=== PATIENT | male | born 1985 | race Caucasian/White ===

== ENCOUNTER 2016-12-16 02:03 | Emergency (ER) | payer MEDICAID, OTHER ==
[~2016-12-16] VITALS: Ht 177.8 cm; Wt 84.0 kg
[2016-12-16 02:06] VITALS: BP 185/95; PULSE 78; RESP 16; TEMP 97.9; O2SAT 97
[2016-12-16] MEDS ORDERED: LORazepam 1 MG TAB PO ONE (02:30)
--- NOTE | 2016-12-16 02:36 | PD ---
HPI Chief Complaint: Psychiatric Symptoms Time Seen by Provider: 02:21 Travel History International Travel<30 days: No Contact w/Intl Traveler<30days: No Traveled to known affect area: No History of Present Illness HPI 31-year-old male complains of anxiety, depression and substance abuse. Patient admitted to some alcohol and methamphetamine and cocaine this evening. Patient text a message to a friend earlier that appears to be a suicidal goodbye note. Patient denies any suicidal ideation now. Patient also has history of PTSD. Patient states that he was seen by psychiatrist in the past. Patient stated he is not on any medication now. Patient denies any headache. Patient denies any chest pain or shortness of breath. Patient denies abdominal pain. Patient denies any focal weakness or numbness of extremity. PFSH Past Medical History ADD: Yes ADHD: Yes Anxiety: Yes Depression: Yes Social History Alcohol Use: Yes (OFTEN) Tobacco Use: Yes (2 PPD) Substance Use: Yes (COCAINE, SNORT AND SMOKING, MARIJUAN) Allergies-Medications (Allergen,Severity, Reaction): Coded Allergies: bee venom protein (honey bee) (Verified Allergy, Severe, Anaphylaxis, 11/22) peanut (Verified Allergy, Severe, Anaphylaxis, 12/16/16) Reported Meds & Prescriptions Reported Meds & Active Scripts Active No Active Prescriptions or Reported Medications Review of Systems General / Constitutional: No: Fever Eyes: No: Visual changes HENT: No: Headaches Cardiovascular: No: Chest Pain or Discomfort Respiratory: No: Shortness of Breath Gastrointestinal: No: Abdominal Pain Genitourinary: No: Dysuria Musculoskeletal: No: Pain Skin: No Rash Neurologic: No: Weakness Psychiatric: Positive: Anxiety, Depression, Suicidal Ideations Endocrine: No: Polydipsia Hematologic/Lymphatic: No: Easy Bruising Physical Exam Narrative GENERAL: Well-nourished, well-developed patient. SKIN: Focused skin assessment warm/dry. HEAD: Normocephalic. EYES: No scleral icterus. No injection or drainage. NECK: Supple, trachea midline. No JVD or lymphadenopathy. CARDIOVASCULAR: Regular rate and rhythm without murmurs, gallops, or rubs. RESPIRATORY: Breath sounds equal bilaterally. No accessory muscle use. GASTROINTESTINAL: Abdomen soft, non-tender, nondistended. MUSCULOSKELETAL: No cyanosis, or edema. BACK: Nontender without obvious deformity. No CVA tenderness. Data Data Last Documented VS Vital Signs Date Time Temp Pulse Resp B/P (MAP) Pulse Ox O2 Delivery O2 Flow Rate FiO2 12/16/16 02:06 97.9 78 16 185/95 (125) 97 Room Air Orders Orders Complete Blood Count With Diff (12/16/16 02:24) Comprehensive Metabolic Panel (12/16/16 02:24) Psych Screen (12/16/16 02:24) Drug Screen, Random Urine (12/16/16 02:24) Alcohol (Ethanol) (12/16/16 02:24) Lorazepam (Ativan) (12/16/16 02:30) Nicotine 21 Mg Patch.24 Hr (Habitrol 21 (12/16/16 02:45) Labs Laboratory Tests Test 12/16/16 02:28 12/16/16 03:12 White Blood Count 10.8 TH/MM3 Red Blood Count 4.68 MIL/MM3 Hemoglobin 15.6 GM/DL Hematocrit 44.3 % Mean Corpuscular Volume 94.7 FL Mean Corpuscular Hemoglobin 33.3 PG Mean Corpuscular Hemoglobin Concent 35.2 % Red Cell Distribution Width 13.5 % Platelet Count 239 TH/MM3 Mean Platelet Volume 8.4 FL Neutrophils (%) (Auto) 58.7 % Lymphocytes (%) (Auto) 32.7 % Monocytes (%) (Auto) 6.8 % Eosinophils (%) (Auto) 0.9 % Basophils (%) (Auto) 0.9 % Neutrophils # (Auto) 6.4 TH/MM3 Lymphocytes # (Auto) 3.5 TH/MM3 Monocytes # (Auto) 0.7 TH/MM3 Eosinophils # (Auto) 0.1 TH/MM3 Basophils # (Auto) 0.1 TH/MM3 CBC Comment DIFF FINAL Differential Comment Blood Urea Nitrogen 9 MG/DL Creatinine 1.12 MG/DL Random Glucose 82 MG/DL Total Protein 7.5 GM/DL Albumin 4.1 GM/DL Calcium Level 8.9 MG/DL Alkaline Phosphatase 70 U/L Aspartate Amino Transf (AST/SGOT) 21 U/L Alanine Aminotransferase (ALT/SGPT) 31 U/L Total Bilirubin 0.5 MG/DL Sodium Level 141 MEQ/L Potassium Level 3.7 MEQ/L Chloride Level 107 MEQ/L Carbon Dioxide Level 24.4 MEQ/L Anion Gap 10 MEQ/L Estimat Glomerular Filtration Rate 76 ML/MIN Ethyl Alcohol Level LESS THAN 3 MG/DL Urine Opiates Screen NEG Urine Barbiturates Screen NEG Urine Amphetamines Screen NEG Urine Benzodiazepines Screen NEG Urine Cocaine Screen POS Urine Cannabinoids Screen POS MDM Medical Decision Making Medical Screen Exam Complete: Yes Emergency Medical Condition: Yes Interpretation(s) 4:13 AM. CBC within normal limit. CMP within normal limit. Drug screen positive for cocaine and cannabis. Differential Diagnosis Differential diagnosis including anxiety, depression, suicidal, adjustment disorder, substance induced mood disorder. Narrative Course 31-year-old male with anxiety depression, substance abuse, suicidal ideation. Ativan 1 mg by mouth given. 4:14 AM. Patient is medically cleared for psychiatric evaluation and disposition. Scripts No Active Prescriptions or Reported Meds Richard Conrad MD Dec 16, 2016 02:36
[2016-12-16 02:44] LABS: AUTOMATED NEUTROPHIL # 6.4 TH/MM3 (1.8-7.7); BASOPHIL # 0.1 TH/MM3 (0-0.2); BASOPHIL % 0.9 % (0.0-2.0); EOSINOPHIL # 0.1 TH/MM3 (0-0.4); EOSINOPHIL % 0.9 % (0.0-4.0); HEMATOCRIT 44.3 % (39.0-51.0); HEMO FLAGS DIFF FINAL; LYMPH % 32.7 % (9.0-44.0); LYMPHOCYTE # 3.5 TH/MM3 (1.0-4.8); MEAN CELL VOLUME 94.7 FL (80.0-100.0); MEAN CORPUSCULAR HEMOGLOBIN 33.3 PG (27.0-34.0); MEAN CORPUSCULAR HGB CONC 35.2 % (32.0-36.0); MONO % 6.8 % (0.0-8.0); NEUT % 58.7 % (16.0-70.0); PLATELET COUNT 239 TH/MM3 (150-450); RED BLOOD COUNT 4.68 MIL/MM3 (4.50-5.90); RED CELL DISTRIBUTION WIDTH 13.5 % (11.6-17.2); WHITE BLOOD COUNT 10.8 TH/MM3 (4.0-11.0)
[2016-12-16] MEDS ORDERED: NICOTINE 21 MG/24 HR PATCH T-DERMAL ONE (02:45)
[2016-12-16 03:02] LABS: ALT (GPT) 31 U/L (12-78); ANION GAP 10 MEQ/L (5-15); AST (GOT) 21 U/L (15-37); BICARBONATE 24.4 MEQ/L (21.0-32.0); BLOOD UREA NITROGEN 9 MG/DL (7-18); CHLORIDE 107 MEQ/L (98-107); GLOMERULAR FILTRATION RATE 76 ML/MIN (>89); POTASSIUM 3.7 MEQ/L (3.5-5.1); SODIUM (NA) 141 MEQ/L (136-145)
[2016-12-16 03:04] LABS: ALKALINE PHOSPHATASE 70 U/L (45-117); TOTAL BILIRUBIN ADULT 0.5 MG/DL (0.2-1.0)
[2016-12-16 03:11] LABS: ALCOHOL LESS THAN 3 MG/DL (0-5)
[2016-12-16 07:19] VITALS: BP 91/58; PULSE 54; RESP 16; O2SAT 98
--- NOTE | 2016-12-16 11:39 | PD ---
Data Data Last Documented VS Vital Signs Date Time Temp Pulse Resp B/P (MAP) Pulse Ox O2 Delivery O2 Flow Rate FiO2 12/16/16 11:43 74 16 127/86 (100) 99 12/16/16 07:19 Room Air 12/16/16 02:06 97.9 Orders Orders Complete Blood Count With Diff (12/16/16 02:24) Comprehensive Metabolic Panel (12/16/16 02:24) Psych Screen (12/16/16 02:24) Drug Screen, Random Urine (12/16/16 02:24) Alcohol (Ethanol) (12/16/16 02:24) Lorazepam (Ativan) (12/16/16 02:30) Nicotine 21 Mg Patch.24 Hr (Habitrol 21 (12/16/16 02:45) Diet Regular Basic (12/16/16 Breakfast) Ed Discharge Order (12/16/16 11:39) Labs Laboratory Tests Test 12/16/16 02:28 12/16/16 03:12 White Blood Count 10.8 TH/MM3 Red Blood Count 4.68 MIL/MM3 Hemoglobin 15.6 GM/DL Hematocrit 44.3 % Mean Corpuscular Volume 94.7 FL Mean Corpuscular Hemoglobin 33.3 PG Mean Corpuscular Hemoglobin Concent 35.2 % Red Cell Distribution Width 13.5 % Platelet Count 239 TH/MM3 Mean Platelet Volume 8.4 FL Neutrophils (%) (Auto) 58.7 % Lymphocytes (%) (Auto) 32.7 % Monocytes (%) (Auto) 6.8 % Eosinophils (%) (Auto) 0.9 % Basophils (%) (Auto) 0.9 % Neutrophils # (Auto) 6.4 TH/MM3 Lymphocytes # (Auto) 3.5 TH/MM3 Monocytes # (Auto) 0.7 TH/MM3 Eosinophils # (Auto) 0.1 TH/MM3 Basophils # (Auto) 0.1 TH/MM3 CBC Comment DIFF FINAL Differential Comment Blood Urea Nitrogen 9 MG/DL Creatinine 1.12 MG/DL Random Glucose 82 MG/DL Total Protein 7.5 GM/DL Albumin 4.1 GM/DL Calcium Level 8.9 MG/DL Alkaline Phosphatase 70 U/L Aspartate Amino Transf (AST/SGOT) 21 U/L Alanine Aminotransferase (ALT/SGPT) 31 U/L Total Bilirubin 0.5 MG/DL Sodium Level 141 MEQ/L Potassium Level 3.7 MEQ/L Chloride Level 107 MEQ/L Carbon Dioxide Level 24.4 MEQ/L Anion Gap 10 MEQ/L Estimat Glomerular Filtration Rate 76 ML/MIN Ethyl Alcohol Level LESS THAN 3 MG/DL Urine Opiates Screen NEG Urine Barbiturates Screen NEG Urine Amphetamines Screen NEG Urine Benzodiazepines Screen NEG Urine Cocaine Screen POS Urine Cannabinoids Screen POS MDM Medical Record Reviewed: Yes Supervised Visit with KLARISSA: No Narrative Course The patient 31 years old. He arrives here voluntarily after insufflation of cocaine and smoking of methamphetamines and marijuana. Evidently he texted a note which included a suicidal ideation and his friend called police department. The time my evaluation he denies suicidal ideation however reports he wants to see a psychiatrist because he would like to be prescribed Welbutrin , Klonopin and Valium. He is agreeable with a plan for rehabilitation from [facility]. Diagnosis Primary Impression: Polysubstance abuse Additional Impressions: Substance induced mood disorder Post traumatic stress disorder (PTSD) Referrals: [facility] Med/Other Pt SpecificInfo: No Change to Meds Scripts No Active Prescriptions or Reported Meds Disposition: 01 DISCHARGE HOME Condition: Stable Amado Golden MD Dec 16, 2016 11:39
[2016-12-16 11:43] VITALS: BP 127/86
== END 2016-12-16 11:51 | disposition home or self-care (01) ==
LOC: NEPE 02:03
DX: F19.10 Other psychoactive substance abuse, uncomplicated (principal); F19.94 Other psychoactive substance use, unspecified with psychoactive substance-induced mood disorder; F43.10 Post-traumatic stress disorder, unspecified; F90.9 Attention-deficit hyperactivity disorder, unspecified type; F32.9 Major depressive disorder, single episode, unspecified; F17.200 Nicotine dependence, unspecified, uncomplicated
CPT/HCPCS: 80053; 80307; 85025; 99283

== ENCOUNTER 2016-12-29 18:28 | Inpatient (IN) | payer MEDICAID, OTHER ==
[~2016-12-29] VITALS: Ht 177.8 cm; Wt 90.4 kg
[2016-12-29] MEDS ORDERED: MORPHINE SULFATE 8 MG/ML INJ ONE (18:32)
[2016-12-29] MEDS ORDERED: ONDANSETRON HCL 4 MG/2 ML VIAL ONE (18:35)
[2016-12-29 18:52] LABS: I-STAT POTASSIUM 3.9 MMOL/L (3.5-4.9)
[2016-12-29 18:54] LABS: AUTOMATED NEUTROPHIL # 6.1 TH/MM3 (1.8-7.7); BASOPHIL % 0.3 % (0.0-2.0); EOSINOPHIL # 0.1 TH/MM3 (0-0.4); HEMO FLAGS DIFF FINAL; LYMPH % 30.4 % (9.0-44.0); LYMPHOCYTE # 3.1 TH/MM3 (1.0-4.8); MEAN CELL VOLUME 94.4 FL (80.0-100.0); MEAN CORPUSCULAR HEMOGLOBIN 33.3 PG (27.0-34.0); MEAN CORPUSCULAR HGB CONC 35.2 % (32.0-36.0); MONO % 7.5 % (0.0-8.0); NEUT % 60.8 % (16.0-70.0); PLATELET COUNT 272 TH/MM3 (150-450); RED BLOOD COUNT 4.45 MIL/MM3 (4.50-5.90); RED CELL DISTRIBUTION WIDTH 13.4 % (11.6-17.2); WHITE BLOOD COUNT 10.1 TH/MM3 (4.0-11.0)
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
[2016-12-29] MEDS ORDERED: IOHEXOL 350 MG/ML 10 ML VIAL (for RAD DIAG) IVCONTRAST ONE (19:01)
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
[2016-12-29 19:06] LABS: APTT (PATIENT) 23.6 SEC (24.3-30.1); PROTHROMBIN TIME - PATIENT 11.4 SEC (9.8-11.6)
[2016-12-29] MEDS ORDERED: HYDROmorphone HCL PF 2 MG/ML VIAL ONE (19:07)
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
[2016-12-29] MEDS ORDERED: CHLORHEXIDINE GLUCONATE 2 % 1 PACK (2 CLOTHS) TOP PRN (19:45)
[2016-12-29] MEDS ORDERED: HYDROmorphone HCL PF 0.5 MG/0.5 ML SYRINGE IV PUSH PRN (19:45)
[2016-12-29] MEDS ORDERED: BISACODYL 10 MG SUPP RECTAL PRN (19:45)
[2016-12-29] MEDS ORDERED: MAGNESIUM HYDROXIDE SUSP 30 ML CUP PO PRN (19:45)
[2016-12-29] MEDS ORDERED: MISCELLANEOUS NURSING INFORMATION XX SCH (19:45)
[2016-12-29 19:59] VITALS: BP 137/78; PULSE 70; RESP 18; O2SAT 99
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
[2016-12-29] MEDS ORDERED: DOCUSATE SODIUM 50 MG/SENNA 8.6 MG TAB PO SCH (21:00)
[2016-12-29] MEDS: ACETAMINOPHEN 1000 MG/100 ML 100 ML IV SCH (21:00)
[2016-12-29 21:27] VITALS: BP 130/68; PULSE 83; RESP 18; O2SAT 96
[2016-12-29] MEDS ORDERED: NICOTINE 7 MG/24 HR PATCH TOPICAL SCH (22:30)
[2016-12-29] MEDS: METHOCARBAMOL 500 MG TAB PO SCH (22:33)
[2016-12-29] MEDS: SODIUM CHLOR 0.9% 1000 ML INJ 1,000 ML IV SCH (22:35)
[2016-12-29 23:00] VITALS: PULSE 78
[2016-12-30] VITALS (8 sets, daily range): BP systolic 118–130; BP diastolic 66–81; PULSE 60–93; RESP 17–20; TEMP 97.8–98.3; O2SAT 94–98
[2016-12-30] MEDS: HYDROmorphone HCL PF 1 MG/ML VIAL IV PUSH PRN ×6 (00:48→20:25)
[2016-12-30] MEDS: ACETAMINOPHEN 1000 MG/100 ML 100 ML IV SCH ×3 (02:15→12:19)
[2016-12-30] MEDS: CHLORHEXIDINE GLUCONATE 2 % 1 PACK (2 CLOTHS) TOP SCH (04:00)
[2016-12-30 04:53] LABS: AUTOMATED NEUTROPHIL # 5.8 TH/MM3 (1.8-7.7); BASOPHIL % 0.2 % (0.0-2.0); EOSINOPHIL # 0.1 TH/MM3 (0-0.4); HEMATOCRIT 34.9 % (39.0-51.0); HEMO FLAGS DIFF FINAL; LYMPH % 23.4 % (9.0-44.0); LYMPHOCYTE # 1.9 TH/MM3 (1.0-4.8); MEAN CELL VOLUME 95.9 FL (80.0-100.0); MEAN CORPUSCULAR HEMOGLOBIN 33.5 PG (27.0-34.0); MONO % 5.9 % (0.0-8.0); NEUT % 69.5 % (16.0-70.0); PLATELET COUNT 169 TH/MM3 (150-450); RED BLOOD COUNT 3.64 MIL/MM3 (4.50-5.90); RED CELL DISTRIBUTION WIDTH 13.5 % (11.6-17.2); WHITE BLOOD COUNT 8.3 TH/MM3 (4.0-11.0)
[2016-12-30 05:14] LABS: BICARBONATE 24.9 MEQ/L (21.0-32.0); POTASSIUM 3.4 MEQ/L (3.5-5.1)
[2016-12-30] MEDS: SODIUM CHLOR 0.9% 1000 ML INJ 1,000 ML IV SCH ×2 (05:41→15:41)
[2016-12-30] MEDS: METHOCARBAMOL 500 MG TAB PO SCH ×3 (05:59→20:23)
[2016-12-30] MEDS ORDERED: ACETAMINOPHEN 1000 MG/100 ML 0 ML IV ONE (07:19)
[2016-12-30] MEDS ORDERED: PANTOPRAZOLE SODIUM 40 MG VIAL IV PUSH ONE (07:30)
[2016-12-30] MEDS ORDERED: GENTAMICIN SULFATE 80 MG/2 ML VIAL ONE (07:52)
[2016-12-30] MEDS ORDERED: PERC5TAB12 PO (08:23)
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
[2016-12-30] MEDS ORDERED: ceFAZolin 2 GM PREMIX 50 ML ONE (08:46)
[2016-12-30] MEDS: REMOVE OLD PATCH T-DERMAL SCH (09:00)
[2016-12-30] MEDS: DOCUSATE SODIUM 50 MG/SENNA 8.6 MG TAB PO SCH ×2 (09:00→20:23)
[2016-12-30] MEDS: MULTIVITAMIN INJ 10 ML, THIAMINE INJ 100 MG, FOLIC ACID INJ 1 MG in SODIUM CHLORID 0.9%... IV SCH (09:00)
--- NOTE | 2016-12-30 10:51 | PD.OP ---
cc: Pablito Mary Jr., MD Operative Report Date of Surgery: Dec 30, 2016 Preoperative Diagnosis: Right closed comminuted tibia fracture Postoperative Diagnosis: same Procedure: Right tibia intramedullary uziel fixation Anesthesia: Gen. Surgeon: Pablito Mary Supervisor Grading(s): Hospital staff Resident Surgeon: None Operation and Findings: Estimated blood loss: 200 cc The patient received intravenous ancef. After the appropriate anesthesia was administered, the patient was prepped and draped in the supine position in the usual sterile fashion. Skin assessment showed moderate swelling and soft compartment. We made incision proximal to the patella. We carefully dissected down to the quadriceps tendon. An in-line longitudinal split to the quadriceps tendon was completed. The capsule of the knee was entered. We placed the smooth trocar within the knee joint down to the proximal tibia, protecting the patella and trochlea during the case. A small skin incision was made over the fracture site. We then reduced the tibia fracture manually under fluoroscopic and using bone clamps. A ball- tipped guidewire was placed into the tibial shaft, passing the fracture site. This was placed down to the distal physeal line of the tibia. We then sequentially reamed the tibia to 1 mm larger than the implanted tibial nail. We obtained good cortical chatter. We measured the appropriate length for the tibial nail. We then passed the tibial nail into the medullary canal of the tibia. The nail was secured proximally with 3 screw(s), using the associated jig as a guide. We used the perfect guidiville technique to visualize the distal tibial screws. The nail was secured distally with 2 screw(s). We had good reduction of the fracture with acceptable alignment in the AP and lateral planes and to rotation. We thoroughly irrigated the incisions including a lavage of the arthrotomy site proximally. The quadriceps split was closed with a #1 Vicryl. The remaining incisions were closed with #2-0 Vicryl, followed by william. Sterile dressing was applied. IMPLANTS USED Synthes tibal nail, size: 10 x 360 mm POSTP-OP PLAN OF ACTIVITY Antibiotics: Ancef Antiocoagulation: Lovenox Weight bearing status: 50% WB Dressing: Change daily, by RN starting postop day 2 Dispo: ok to dc per Pablito Smith Jr., MD Dec 30, 2016 10:51
[2016-12-30] MEDS ORDERED: SENNOSIDES 8.6 MG TAB PO PRN (11:00)
[2016-12-30] MEDS ORDERED: ZOLPIDEM TARTRATE 5 MG TAB PO PRN (11:00)
[2016-12-30] MEDS ORDERED: MAGNESIUM HYDROXIDE SUSP 30 ML CUP PO PRN (11:00)
[2016-12-30] MEDS ORDERED: oxyCODONE/ACETAMINOPHEN 5 MG/325 MG TAB PO PRN ×2 (11:00)
[2016-12-30] MEDS ORDERED: SODIUM CHLORIDE 0.9% FLUSH 10 ML FLUSH IV FLUSH PRN (11:00)
[2016-12-30] MEDS ORDERED: LACTULOSE SYRUP 20 GM/30 ML CUP PO PRN (11:00)
[2016-12-30] MEDS ORDERED: BISACODYL 10 MG SUPP RECTAL PRN (11:00)
[2016-12-30] MEDS ORDERED: Post-op Orders (for Pharmacy) XX ONE (11:00)
[2016-12-30] MEDS ORDERED: PROMETHAZINE HCL 25 MG TAB PO PRN (11:00)
[2016-12-30] MEDS ORDERED: MORPHINE SULFATE 8 MG/ML INJ IV PUSH PRN (11:00)
[2016-12-30] MEDS ORDERED: *MEPERIDINE 25 MG INJ VIAL PERIprocedural Use ONLY ONE (11:08)
[2016-12-30] MEDS ORDERED: *morphine SULFATE 8 MG/ML PERIprocedure ONLY ONE (11:31)
[2016-12-30] MEDS ORDERED: DO NOT ADM ANY ANTICOAGULANT DRUGS PRN (11:45)
[2016-12-30] MEDS ORDERED: PROPOFOL 200 MG/20 ML AMP IV ONE (12:00)
[2016-12-30] MEDS ORDERED: GLYCOPYRROLATE 1 MG/5 ML SYRINGE IV PUSH ONE (12:00)
[2016-12-30] MEDS ORDERED: MIDAZOLAM HCL 2 MG/2 ML VIAL IV ONE (12:00)
[2016-12-30] MEDS ORDERED: DEXAMETHASONE SOD PHOS 4 MG/ML VIAL IV ONE (12:00)
[2016-12-30] MEDS ORDERED: NEOSTIGMINE 3 MG/3 ML SYR IV ONE (12:00)
[2016-12-30] MEDS ORDERED: ROCURONIUM INJ 50 MG/5 ML SYRINGE IV PUSH ONE (12:00)
[2016-12-30] MEDS ORDERED: ONDANSETRON HCL 4 MG/2 ML VIAL IV ONE (12:00)
[2016-12-30] MEDS ORDERED: LIDOCAINE HCL 1% PF 5 ML SYRINGE OTHER ONE (12:00)
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
[2016-12-30] MEDS: NICOTINE 7 MG/24 HR PATCH T-DERMAL SCH (15:28)
[2016-12-30] MEDS: DIAZEPAM 5 MG TAB PO PRN (17:29)
[2016-12-30] MEDS: SENNOSIDES 8.6 MG TAB PO PRN (18:50)
[2016-12-30] MEDS: LACTULOSE SYRUP 20 GM/30 ML CUP PO PRN (18:51)
--- NOTE | 2016-12-30 19:52 | RADRPT ---
EXAM DATE/TIME: 12/30/2016 10:27 [facility] COMPARISON: No previous studies available for comparison. INDICATIONS : Right tibial fracture- ORIF of right tibia. MEDICAL HISTORY : None. SURGICAL HISTORY : None. ENCOUNTER: Subsequent ACUITY: 1 day PAIN SCORE: Non-responsive. LOCATION: Right Tibia. FINDINGS: 4 views of the leg are performed intraoperative using C-arm during the placement of intramedullary ro d and screws in the tibia. CONCLUSION: Intraoperative images. Joe Son MD on December 30, 2016 at 19:49 Board Certified Radiologist. This report was verified electronically.
[2016-12-30] MEDS: traZODone HCL 100 MG TAB PO SCH (20:23)
[2016-12-30] MEDS: SODIUM CHLORIDE 0.9% FLUSH 10 ML FLUSH IV FLUSH SCH (20:24)
[2016-12-30] MEDS ORDERED: DOCUSATE SODIUM 50 MG/SENNA 8.6 MG TAB PO SCH (21:00)
[2016-12-30] MEDS ORDERED: ENOXAPARIN SODIUM 30 MG/0.3 ML SYRINGE SQ SCH (23:00)
[2016-12-31 00:05] VITALS: BP 117/64; PULSE 99; RESP 18; TEMP 98.1; O2SAT 97
[2016-12-31] MEDS: SODIUM CHLOR 0.9% 1000 ML INJ 1,000 ML IV SCH (02:57)
[2016-12-31] MEDS: CHLORHEXIDINE GLUCONATE 2 % 1 PACK (2 CLOTHS) TOP SCH (02:58)
[2016-12-31 03:54] LABS: AUTOMATED NEUTROPHIL # 7.2 TH/MM3 (1.8-7.7); BASOPHIL % 0.1 % (0.0-2.0); EOSINOPHIL # 0.1 TH/MM3 (0-0.4); EOSINOPHIL % 0.6 % (0.0-4.0); HEMATOCRIT 30.5 % (39.0-51.0); HEMO FLAGS DIFF FINAL; LYMPH % 17.2 % (9.0-44.0); LYMPHOCYTE # 1.7 TH/MM3 (1.0-4.8); MEAN CELL VOLUME 95.2 FL (80.0-100.0); MEAN CORPUSCULAR HEMOGLOBIN 33.6 PG (27.0-34.0); MEAN CORPUSCULAR HGB CONC 35.3 % (32.0-36.0); MONO % 7.8 % (0.0-8.0); NEUT % 74.3 % (16.0-70.0); PLATELET COUNT 161 TH/MM3 (150-450); RED CELL DISTRIBUTION WIDTH 13.7 % (11.6-17.2); WHITE BLOOD COUNT 9.7 TH/MM3 (4.0-11.0)
[2016-12-31 04:22] LABS: BICARBONATE 25.2 MEQ/L (21.0-32.0); POTASSIUM 3.5 MEQ/L (3.5-5.1)
[2016-12-31] MEDS: HYDROmorphone HCL PF 1 MG/ML VIAL IV PUSH PRN ×5 (04:26→23:54)
[2016-12-31] MEDS: METHOCARBAMOL 500 MG TAB PO SCH ×3 (05:58→21:24)
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
[2016-12-31] MEDS ORDERED: KETOROLAC TROMETHAMINE 30 MG/ML (IVP) VIAL IV PUSH SCH (07:00)
[2016-12-31 08:00] VITALS: BP 143/76; PULSE 93; RESP 18; TEMP 96.9; O2SAT 98
[2016-12-31] MEDS: LACTULOSE SYRUP 20 GM/30 ML CUP PO PRN (08:13)
[2016-12-31] MEDS: GABAPENTIN 300 MG CAP PO SCH ×3 (08:13→17:19)
[2016-12-31] MEDS: DOCUSATE SODIUM 50 MG/SENNA 8.6 MG TAB PO SCH ×2 (08:14→21:24)
[2016-12-31] MEDS: SODIUM CHLORIDE 0.9% FLUSH 10 ML FLUSH IV FLUSH SCH ×2 (08:16→21:27)
[2016-12-31] MEDS: MULTIVITAMIN INJ 10 ML, THIAMINE INJ 100 MG, FOLIC ACID INJ 1 MG in SODIUM CHLORID 0.9%... IV SCH (08:16)
[2016-12-31] MEDS: REMOVE OLD PATCH T-DERMAL SCH (08:17)
[2016-12-31] MEDS: DIAZEPAM 5 MG TAB PO PRN (11:13)
[2016-12-31] MEDS: NICOTINE 7 MG/24 HR PATCH T-DERMAL SCH (11:15)
[2016-12-31] MEDS ORDERED: oxyCODONE/ACETAMINOPHEN 7.5 MG/325 MG TAB PO PRN (11:15)
[2016-12-31 12:00] VITALS: BP 121/73; PULSE 80; RESP 18; TEMP 96.1; O2SAT 98
[2016-12-31] MEDS ORDERED: MAGNESIUM CITRATE SOLN 300 ML BTL PO ONE (12:00)
[2016-12-31] MEDS ORDERED: PILL SPLITTER OTHER PRN (12:00)
[2016-12-31] MEDS: oxyCODONE/ACETAMINOPHEN 10 MG/325 MG TAB PO PRN ×3 (12:36→21:23)
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
[2016-12-31] MEDS: ENOXAPARIN SODIUM 30 MG/0.3 ML SYRINGE SQ SCH ×2 (12:53→23:58)
--- NOTE | 2016-12-31 12:56 | PD.ORT.PN ---
Subjective Subjective Remarks Doing well. No issues. Pain controlled Objective Vitals Vital Signs Date Time Temp Pulse Resp B/P (MAP) Pulse Ox O2 Delivery O2 Flow Rate FiO2 12/31/16 08:00 96.9 93 18 143/76 (98) 98 12/31/16 00:05 98.1 99 18 117/64 (81) 97 12/30/16 20:55 18 12/30/16 20:11 97.8 69 18 120/69 (86) 98 I/O 12/30/16 12/30/16 12/30/16 12/31/16 12/31/16 12/31/16 07:00 15:00 23:00 07:00 15:00 23:00 Intake Total 400 ml 1100 ml 460 ml 750 ml Output Total 400 ml 200 ml 300 ml 500 ml Balance 0 ml 900 ml 160 ml 250 ml Intake Oral 400 ml 360 ml 480 ml IV Total 100 ml 100 ml 270 ml Other 1000 ml Output Urine Total 400 ml 300 ml 500 ml Estimated Blood Loss 200 ml # Voids 1 # Bowel Movements 1 0 Result Diagram: 12/31/16 0336 12/31/16 0336 Imaging Last 24 hours Impressions Chest X-Ray 12/31/16 0600 Signed Impressions: Service Date/Time: Saturday, December 31, 2016 05:00 - CONCLUSION: No acute disease. Jean Arevalo MD Objective Remarks Alert awake and oriented -3. No acute distress. Pulmonary: Normal respiratory effort. Right lower extremity: Neurovascularly intact, +EHL/FHL, dressing clean, dry and intact. + PT/DP pulses. Supple compartments. Negative Homans sign. Left lower extremity: neurovascularly intact, painful hip ROM. Assessment & Plan Assessment and Plan 1- right tibia fx IMN 2- left acetabular fx doing well dressing changes RLE POD 2 50% RLE for 2 wks then wbat NWB LLE lovenox f/u 2 wks Pablito Mary Jr., MD Dec 31, 2016 12:56
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
[2016-12-31 16:00] VITALS: BP 125/69; PULSE 90; RESP 18; TEMP 96.8; O2SAT 98
[2016-12-31] MEDS: SENNOSIDES 8.6 MG TAB PO PRN (17:19)
[2016-12-31] MEDS: SERTRALINE HCL 50 MG TAB PO SCH (17:24)
[2016-12-31] MEDS: ONDANSETRON HCL 4 MG/2 ML VIAL IV PUSH PRN (18:01)
[2016-12-31 20:03] VITALS: BP 121/85; PULSE 100; RESP 18; TEMP 97.7; O2SAT 96
[2016-12-31] MEDS: traZODone HCL 100 MG TAB PO SCH (21:24)
[2017-01-01 00:28] VITALS: BP 119/76; PULSE 98; RESP 18; TEMP 97.1; O2SAT 95
[2017-01-01] MEDS: oxyCODONE/ACETAMINOPHEN 10 MG/325 MG TAB PO PRN ×3 (02:36→11:22)
[2017-01-01] MEDS: METHOCARBAMOL 500 MG TAB PO SCH ×3 (05:22→20:42)
[2017-01-01 05:28] LABS: AUTOMATED NEUTROPHIL # 5.7 TH/MM3 (1.8-7.7); BASOPHIL % 0.4 % (0.0-2.0); EOSINOPHIL # 0.2 TH/MM3 (0-0.4); EOSINOPHIL % 2.1 % (0.0-4.0); HEMATOCRIT 27.7 % (39.0-51.0); HEMO FLAGS DIFF FINAL; LYMPH % 22.8 % (9.0-44.0); LYMPHOCYTE # 1.9 TH/MM3 (1.0-4.8); MEAN CELL VOLUME 96.5 FL (80.0-100.0); MEAN CORPUSCULAR HEMOGLOBIN 34.2 PG (27.0-34.0); MEAN CORPUSCULAR HGB CONC 35.4 % (32.0-36.0); MONO % 7.7 % (0.0-8.0); PLATELET COUNT 131 TH/MM3 (150-450); RED BLOOD COUNT 2.87 MIL/MM3 (4.50-5.90); RED CELL DISTRIBUTION WIDTH 13.8 % (11.6-17.2); WHITE BLOOD COUNT 8.5 TH/MM3 (4.0-11.0)
[2017-01-01 05:54] LABS: ANION GAP 9 MEQ/L (5-15); AST (GOT) 36 U/L (15-37); BICARBONATE 24.5 MEQ/L (21.0-32.0); BLOOD UREA NITROGEN 7 MG/DL (7-18); CHLORIDE 104 MEQ/L (98-107); GLOMERULAR FILTRATION RATE 114 ML/MIN (>89); POTASSIUM 3.4 MEQ/L (3.5-5.1); SODIUM (NA) 137 MEQ/L (136-145)
[2017-01-01 05:55] LABS: ALT (GPT) 31 U/L (12-78)
[2017-01-01 05:58] LABS: ALKALINE PHOSPHATASE 49 U/L (45-117); TOTAL BILIRUBIN ADULT 0.3 MG/DL (0.2-1.0)
--- NOTE | 2017-01-01 06:59 | PD.ORT.PN ---
Subjective Subjective Remarks Patient doing well this morning. Pain relatively well controlled. Reports more right lower shoulder pain and left hip pain. States he has been able to get out of bed to commode. Objective Vitals Vital Signs Date Time Temp Pulse Resp B/P (MAP) Pulse Ox O2 Delivery O2 Flow Rate FiO2 01/01/17 03:30 18 01/01/17 00:43 18 01/01/17 00:28 97.1 98 18 119/76 (90) 95 12/31/16 20:03 97.7 100 18 121/85 (97) 96 12/31/16 16:00 96.8 90 18 125/69 (87) 98 12/31/16 12:00 96.1 80 18 121/73 (89) 98 12/31/16 08:00 96.9 93 18 143/76 (98) 98 I/O 12/31/16 12/31/16 12/31/16 01/01/17 01/01/17 01/01/17 07:00 15:00 23:00 07:00 15:00 23:00 Intake Total 750 ml 1200 ml 480 ml Output Total 500 ml 200 ml Balance 250 ml 1200 ml 280 ml Intake Oral 480 ml 1200 ml 480 ml IV Total 270 ml Output Urine Total 500 ml 200 ml # Voids 5 2 2 # Bowel Movements 0 1 0 1 Result Diagram: 01/01/1743201/01/17 043 Imaging Last 24 hours Impressions Chest X-Ray 12/31/16 0600 Signed Impressions: Service Date/Time: Saturday, December 31, 2016 05:00 - CONCLUSION: No acute disease. Jean Arevalo MD Objective Remarks Alert awake and oriented -3. No acute distress. Pulmonary: Normal respiratory effort. Right lower extremity: Neurovascularly intact, +EHL/FHL, dressing clean, dry and intact. + PT/DP pulses. Supple compartments. Negative Homans sign. Left lower extremity: neurovascularly intact, mildly painful hip ROM. Assessment & Plan Assessment and Plan 1- right tibia fx IMN 2- left acetabular fx Postop day 2 doing well dressing changes RLE TODAY 50% RLE for 2 wks then wbat NWB LLE lovenox f/u 2 wks Estella Carr MD Jan 01, 2017 06:59
[2017-01-01 07:40] VITALS: BP 108/63; PULSE 92; RESP 18; TEMP 97.8; O2SAT 93
[2017-01-01] MEDS: DIAZEPAM 5 MG TAB PO PRN ×2 (08:23→23:43)
[2017-01-01] MEDS: DOCUSATE SODIUM 50 MG/SENNA 8.6 MG TAB PO SCH ×2 (08:23→20:42)
[2017-01-01] MEDS: NICOTINE 7 MG/24 HR PATCH T-DERMAL SCH (08:23)
[2017-01-01] MEDS: GABAPENTIN 300 MG CAP PO SCH (08:23)
[2017-01-01] MEDS: SODIUM CHLORIDE 0.9% FLUSH 10 ML FLUSH IV FLUSH SCH ×2 (08:26→20:44)
[2017-01-01] MEDS: REMOVE OLD PATCH T-DERMAL SCH (08:26)
[2017-01-01] MEDS: MULTIVITAMIN INJ 10 ML, THIAMINE INJ 100 MG, FOLIC ACID INJ 1 MG in SODIUM CHLORID 0.9%... IV SCH (08:26)
[2017-01-01] MEDS: SERTRALINE HCL 50 MG TAB PO SCH (08:26)
[2017-01-01] MEDS: HYDROmorphone HCL PF 1 MG/ML VIAL IV PUSH PRN ×2 (09:38→23:44)
[2017-01-01] MEDS ORDERED: POTASSIUM CHLORIDE 10 MEQ CONTROLLED RELEASE TAB PO ONE (10:00)
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
[2017-01-01 12:00] VITALS: BP 117/76; PULSE 107; RESP 18; TEMP 95.8; O2SAT 96
[2017-01-01] MEDS ORDERED: oxyCODONE/ACETAMINOPHEN 10 MG/325 MG TAB PO PRN (12:00)
[2017-01-01] MEDS ORDERED: oxyCODONE/ACETAMINOPHEN 7.5 MG/325 MG TAB PO PRN (12:00)
[2017-01-01] MEDS: GABAPENTIN 400 MG CAP PO SCH ×2 (13:04→17:38)
[2017-01-01] MEDS: ACETAMINOPHEN 1000 MG/100 ML 100 ML IV SCH ×2 (13:04→17:38)
[2017-01-01] MEDS: ENOXAPARIN SODIUM 30 MG/0.3 ML SYRINGE SQ SCH (13:06)
[2017-01-01 16:00] VITALS: BP 111/67; PULSE 90; RESP 18; TEMP 95.7; O2SAT 95
[2017-01-01 20:05] VITALS: BP 107/73; PULSE 90; RESP 18; TEMP 97; O2SAT 98
[2017-01-01] MEDS: traZODone HCL 100 MG TAB PO SCH (20:42)
[2017-01-02 00:06] VITALS: BP 103/56; PULSE 89; RESP 18; TEMP 97.9; O2SAT 99
[2017-01-02] MEDS: ACETAMINOPHEN 1000 MG/100 ML 100 ML IV SCH ×4 (00:39→21:12)
[2017-01-02] MEDS: ENOXAPARIN SODIUM 30 MG/0.3 ML SYRINGE SQ SCH (00:39)
[2017-01-02 04:02] VITALS: BP 113/69; PULSE 92; RESP 18; TEMP 96.9; O2SAT 99
[2017-01-02] MEDS: METHOCARBAMOL 500 MG TAB PO SCH ×3 (05:49→21:12)
[2017-01-02] MEDS: HYDROmorphone HCL PF 1 MG/ML VIAL IV PUSH PRN ×3 (05:50→15:08)
--- NOTE | 2017-01-02 07:37 | PD.ORT.PN ---
Subjective Subjective Remarks Resting comfortably with mild tenderness to left hip. Leg continuing to improve Objective Vitals Vital Signs Date Time Temp Pulse Resp B/P (MAP) Pulse Ox O2 Delivery O2 Flow Rate FiO2 01/02/17 04:02 96.9 92 18 113/69 (84) 99 01/02/17 00:06 97.9 89 18 103/56 (72) 99 01/01/17 20:05 97.0 90 18 107/73 (84) 98 01/01/17 16:00 95.7 90 18 111/67 (82) 95 01/01/17 12:00 95.8 107 18 117/76 (90) 96 01/01/17 07:40 97.8 92 18 108/63 (78) 93 I/O 01/01/17 01/01/17 01/01/17 01/02/17 01/02/17 01/02/17 06:59 14:59 22:59 06:59 14:59 22:59 Intake Total 450 ml 360 ml 100 ml Balance 450 ml 360 ml 100 ml Intake Oral 450 ml 360 ml 0 ml IV Total 100 ml # Voids 2 4 2 3 # Bowel Movements 1 5 2 3 Result Diagram: 01/01/17 0433 01/01/17 0433 Imaging Last 24 hours Impressions Chest X-Ray 12/31/16 0600 Signed Impressions: Service Date/Time: Saturday, December 31, 2016 05:00 - CONCLUSION: No acute disease. Jean Arevalo MD Objective Remarks Alert awake and oriented -3. No acute distress. Pulmonary: Normal respiratory effort. Right lower extremity: Neurovascularly intact, +EHL/FHL, dressing clean, dry and intact. + PT/DP pulses. Supple compartments. Negative Homans sign. Left lower extremity: neurovascularly intact, mildly painful hip ROM. Active dorsiflexion and plantar flexion of foot Assessment & Plan Assessment and Plan 1- right tibia fx IMN POD 3 2- left acetabular fx Right lower extremity dressing changes 50% RLE for 2 wks then wbat Left lower extremity: NWB Hold lovenox Reformatting of CT scan Surgery tomorrow for left acetabular fracture Nothing by mouth after midnight Type and cross 2 units of packed red blood cells for surgery tomorrow Jean Baires Jr. Jan 02, 2017 07:37
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
[2017-01-02 08:00] VITALS: BP 100/60; PULSE 80; RESP 18; TEMP 97.7; O2SAT 94
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
[2017-01-02] MEDS: REMOVE OLD PATCH T-DERMAL SCH (09:00)
[2017-01-02] MEDS: DOCUSATE SODIUM 50 MG/SENNA 8.6 MG TAB PO SCH ×2 (09:00→21:12)
[2017-01-02] MEDS: GABAPENTIN 400 MG CAP PO SCH ×3 (09:04→18:00)
[2017-01-02] MEDS: NICOTINE 7 MG/24 HR PATCH T-DERMAL SCH (09:04)
[2017-01-02] MEDS: DIAZEPAM 5 MG TAB PO PRN (09:04)
[2017-01-02] MEDS: SODIUM CHLORIDE 0.9% FLUSH 10 ML FLUSH IV FLUSH SCH ×2 (09:05→21:14)
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
[2017-01-02 12:00] VITALS: BP 98/54; PULSE 89; RESP 18; TEMP 97.3; O2SAT 96
[2017-01-02 16:00] VITALS: BP 106/60; PULSE 94; RESP 18; TEMP 97.3; O2SAT 96
[2017-01-02] MEDS ORDERED: INSULIN HUMAN REGULAR 1,000 UNITS/10 ML VIAL SQ PRN (17:00)
[2017-01-02] MEDS ORDERED: LACTATED RINGER'S 1000 ML IV PRN (17:00)
[2017-01-02] MEDS ORDERED: SODIUM CHLORID 0.9% 500 ML IV PRN (17:00)
[2017-01-02] MEDS ORDERED: POVIDONE IODINE 5% (ANTISEPSIS KIT) 4 APPLICATIONS EACH NARE PRN (17:00)
[2017-01-02] MEDS ORDERED: CHLORHEXIDINE GLUCONATE 2 % 1 PACK (2 CLOTHS) TOPICAL PRN (17:00)
[2017-01-02] MEDS ORDERED: METOPROLOL TARTRATE 25 MG TAB PO PRN (17:00)
[2017-01-02 19:00] VITALS: BP 135/68; PULSE 96; RESP 16; TEMP 97.4; O2SAT 95
[2017-01-02] MEDS ORDERED: BENZOCAINE 7.5% ORAL GEL 9.4 GM TUBE PRN (19:00)
[2017-01-02] MEDS: traZODone HCL 100 MG TAB PO SCH (21:12)
[2017-01-02] MEDS ORDERED: PERI PO (21:28)
[2017-01-02] MEDS ORDERED: MAGN30S PO (21:28)
[2017-01-02] MEDS ORDERED: TUB TRANSFER BO1 MIS (21:34)
[2017-01-02] MEDS ORDERED: COMMODE 3-IN-11 MIS (21:34)
[2017-01-02] MEDS ORDERED: WHEEMIS3 (21:34)
[2017-01-03] VITALS: BP 133/76; PULSE 87; RESP 17; TEMP 97; O2SAT 99
[2017-01-03] MEDS: HYDROmorphone HCL PF 1 MG/ML VIAL IV PUSH PRN ×2 (00:56→06:20)
[2017-01-03 04:00] VITALS: BP 128/75; PULSE 93; RESP 16; TEMP 96.4; O2SAT 97
[2017-01-03] MEDS: ACETAMINOPHEN 1000 MG/100 ML 100 ML IV SCH (05:14)
[2017-01-03] MEDS: METHOCARBAMOL 500 MG TAB PO SCH ×3 (05:15→22:00)
[2017-01-03 06:14] LABS: HEMATOCRIT 25.7 % (39.0-51.0); MEAN CELL VOLUME 95.8 FL (80.0-100.0); MEAN CORPUSCULAR HGB CONC 35.5 % (32.0-36.0); PLATELET COUNT 188 TH/MM3 (150-450); RED BLOOD COUNT 2.68 MIL/MM3 (4.50-5.90); RED CELL DISTRIBUTION WIDTH 13.9 % (11.6-17.2); REVIEW FLAG FINAL; WHITE BLOOD COUNT 5.8 TH/MM3 (4.0-11.0)
--- NOTE | 2017-01-03 06:33 | PD.ORT.PN ---
Subjective Subjective Remarks Resting comfortably with mild tenderness to left hip. Right leg continuing to improve Objective Vitals Vital Signs Date Time Temp Pulse Resp B/P (MAP) Pulse Ox O2 Delivery O2 Flow Rate FiO2 01/03/17 04:00 96.4 93 16 128/75 (92) 97 01/03/17 00:00 97.0 87 17 133/76 (95) 99 01/02/17 19:00 97.4 96 16 135/68 (90) 95 01/02/17 16:00 97.3 94 18 106/60 (75) 96 01/02/17 12:00 97.3 89 18 98/54 (69) 96 01/02/17 08:00 97.7 80 18 100/60 (73) 94 01/02/17 07:34 Room Air I/O 01/02/17 01/02/17 01/02/17 01/03/17 01/03/17 01/03/17 07:00 15:00 23:00 07:00 15:00 23:00 Intake Total 100 ml 600 ml 580 ml 480 ml Output Total 1900 ml Balance 100 ml 600 ml -1320 ml 480 ml Intake Oral 0 ml 600 ml 480 ml 480 ml IV Total 100 ml 100 ml Output Urine Total 1900 ml # Voids 3 3 3 # Bowel Movements 3 1 0 0 Result Diagram: 01/03/17 0500 01/01/17 0433 Imaging Last 24 hours Impressions Chest X-Ray 12/31/16 0600 Signed Impressions: Service Date/Time: Saturday, December 31, 2016 05:00 - CONCLUSION: No acute disease. Jean Arevalo MD Objective Remarks Alert awake and oriented -3. No acute distress. Pulmonary: Normal respiratory effort. Right lower extremity: Neurovascularly intact, +EHL/FHL, dressing clean, dry and intact. + PT/DP pulses. Supple compartments. Negative Homans sign. Left lower extremity: neurovascularly intact, mildly painful hip ROM. Active dorsiflexion and plantar flexion of foot Assessment & Plan Assessment and Plan 1- right tibia fx IMN POD 4 2- left acetabular fx Right lower extremity dressing changes 50% RLE for 2 wks then wbat Left lower extremity: NWB Hold lovenox Surgery today for left acetabular fracture Nothing by mouth Jean Baires Jr. Jan 03, 2017 06:33
[2017-01-03] MEDS ORDERED: SODIUM CHLOR 0.9% 250 ML INJ 250 ML ONE (06:47)
[2017-01-03] MEDS ORDERED: VANCOMYCIN HCL 1000 MG VIAL ONE (06:47)
[2017-01-03] MEDS ORDERED: GENTAMICIN SULFATE 80 MG/2 ML VIAL ONE (06:47)
[2017-01-03] MEDS ORDERED: ceFAZolin 2 GM PREMIX 50 ML ONE (06:47)
[2017-01-03] MEDS ORDERED: HEPARIN SODIUM - SQ 10,000 UNITS/ML VIAL ONE (06:48)
[2017-01-03] MEDS ORDERED: TRANEXAMIC ACID IV SCH (07:00)
[2017-01-03] MEDS ORDERED: SODIUM CHLORIDE 0.9% IV SCH (07:00)
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
[2017-01-03] MEDS: GABAPENTIN 400 MG CAP PO SCH ×3 (09:00→17:58)
[2017-01-03] MEDS: SODIUM CHLORIDE 0.9% FLUSH 10 ML FLUSH IV FLUSH SCH ×2 (09:00→20:28)
[2017-01-03] MEDS: REMOVE OLD PATCH T-DERMAL SCH (09:00)
[2017-01-03] MEDS: DOCUSATE SODIUM 50 MG/SENNA 8.6 MG TAB PO SCH ×2 (09:00→20:29)
[2017-01-03] MEDS: LACTATED RINGER'S 1000 ML INJ 1,000 ML IV SCH (10:19)
[2017-01-03] MEDS ORDERED: NALOXONE HCL 0.4 MG/ML AMP IV PUSH PRN (10:30)
[2017-01-03] MEDS ORDERED: ACETAMINOPHEN/HYDROcodone 325 MG/10 MG TAB PO PRN (10:30)
[2017-01-03] MEDS ORDERED: MORPHINE SULFATE 4 MG/ML INJ IV PUSH PRN (10:30)
[2017-01-03] MEDS ORDERED: MISCELLANEOUS NURSING INFORMATION XX PRN (10:30)
[2017-01-03] MEDS ORDERED: MISCELLANEOUS PHARMACY INFORMATION XX ONE (10:30)
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
[2017-01-03] MEDS ORDERED: HYDROmorphone HCL PF 2 MG/ML VIAL ONE (11:10)
[2017-01-03] MEDS ORDERED: *MEPERIDINE 25 MG INJ VIAL PERIprocedural Use ONLY ONE (11:20)
[2017-01-03] MEDS: MORPHINE SULFATE 30 MG/30 ML PCA IV SCH ×3 (11:56→20:49)
[2017-01-03] MEDS ORDERED: DEXAMETHASONE SOD PHOS 4 MG/ML VIAL IV ONE (12:00)
[2017-01-03] MEDS ORDERED: LIDOCAINE HCL 1% PF 5 ML SYRINGE OTHER ONE (12:00)
[2017-01-03] MEDS ORDERED: SODIUM CHLORIDE 0.9% 20 ML VIAL IV ONE (12:00)
[2017-01-03] MEDS ORDERED: MIDAZOLAM HCL 2 MG/2 ML VIAL IV ONE (12:00)
[2017-01-03] MEDS ORDERED: ROCURONIUM INJ 50 MG/5 ML SYRINGE IV PUSH ONE (12:00)
[2017-01-03] MEDS ORDERED: PROPOFOL 200 MG/20 ML AMP IV ONE (12:00)
[2017-01-03] MEDS ORDERED: ONDANSETRON HCL 4 MG/2 ML VIAL IV ONE (12:00)
[2017-01-03] MEDS ORDERED: NORMOSOL R INJ 1,000 ML IV ONE (12:00)
[2017-01-03] MEDS: ACETAMINOPHEN/HYDROcodone 325 MG/10 MG TAB PO PRN ×3 (12:28→23:00)
[2017-01-03] MEDS: LACTULOSE SYRUP 20 GM/30 ML CUP PO SCH (13:00)
--- NOTE | 2017-01-03 13:00 | RADRPT ---
EXAM DATE/TIME: 01/03/2017 09:32 [place] COMPARISON: CT HIP LEFT W/O CONTRAST, December 29, 2016, 18:54. INDICATIONS : Left acetabulum fracture repair. OR. MEDICAL HISTORY : None. SURGICAL HISTORY : Right tibia ORIF. ENCOUNTER: Initial ACUITY: 1 day PAIN SCORE: Non-responsive. LOCATION: Left acetabulum FINDINGS: A two view examination of the left hip was performed. Postsurgical changes following ORIF of a left acetabular fracture are noted. A large stabilizing scre w extends from the lateral roof of the acetabulum into the left superior pubic ramus. Acetabular rim has been fixated with an extra medullary plate. Femoral head is well-seated within the acetabulum. Satisfactory anatomic alignment is noted. CONCLUSION: Satisfactory appearance of the left acetabulum status post ORIF. Corey Butt MD on January 03, 2017 at 12:53 Board Certified Radiologist. This report was verified electronically.
[2017-01-03] MEDS ORDERED: DO NOT ADM ANY ANTICOAGULANT DRUGS PRN (13:30)
[2017-01-03] MEDS: PCA - TOTAL MG MORPHINE DELIVERED PER SHIFT SCH (14:00)
[2017-01-03] MEDS: ceFAZolin 2 GM PREMIX 50 ML IV SCH ×2 (15:00→23:00)
[2017-01-03] MEDS: DIAZEPAM 5 MG TAB PO PRN (15:13)
[2017-01-03 16:10] VITALS: BP 122/71; PULSE 92; RESP 20; TEMP 95.9; O2SAT 98
[2017-01-03 16:21] VITALS: O2SAT 97
[2017-01-03 20:10] VITALS: BP 141/76; PULSE 98; RESP 20; TEMP 97.9; O2SAT 98
[2017-01-03] MEDS: traZODone HCL 100 MG TAB PO SCH (20:28)
[2017-01-03] MEDS: VANCOMYCIN INJ 1,000 MG in SODIUM CHLOR 0.9% 250 ML INJ 250 ML IV SCH (20:28)
[2017-01-03] MEDS: MAGNESIUM HYDROXIDE SUSP 30 ML CUP PO SCH (20:29)
--- NOTE | 2017-01-03 21:12 | HHI.FF ---
Face to Face Verification Diagnosis: (1) Rib fractures (2) Right tibial fracture (3) Antisocial personality disorder in adult (4) Anxiety disorder (5) Acetabular fracture (6) Polysubstance abuse Physical Therapy Order: Evaluate and Treat, Improve ambulation, Strength and gait training Occupational Therapy Order: Evaluate and Treat, Improve ADL, Gross motor coordination, Fine motor coordination Home Health Nursing Order: Medical education Signs/symptoms of disease process Medication education-adverse effect Nursing assessment with vital signs I have seen patient Jean Macias on 01/03/17. My clinical findings support the need for the requested home health care services because: Ltd mobility - disease progression Deconditioned w/ increased weakness Limited ability to care for self High risk of falls I certify that my clinical findings support that this patient is homebound because: Post-op weakness Unsteady gait/balance Unsafe to leave home unassisted Srm-[id number] bed/chair Unable to use public transportation Shu Harvey Jan 03, 2017 21:12
[2017-01-03] MEDS: ONDANSETRON HCL 4 MG/2 ML VIAL IV PUSH PRN (21:37)
[2017-01-03] MEDS: ENOXAPARIN SODIUM 30 MG/0.3 ML SYRINGE SQ SCH (23:00)
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
[2017-01-04 00:20] VITALS: BP 114/56; PULSE 98; RESP 16; TEMP 97.2; O2SAT 94
[2017-01-04] MEDS: ACETAMINOPHEN/HYDROcodone 325 MG/10 MG TAB PO PRN ×5 (02:02→17:16)
[2017-01-04 04:10] VITALS: BP 115/56; PULSE 93; RESP 16; TEMP 98.1; O2SAT 97
[2017-01-04] MEDS: MORPHINE SULFATE 30 MG/30 ML PCA IV SCH ×2 (05:07→09:05)
[2017-01-04] MEDS: DIAZEPAM 5 MG TAB PO PRN ×2 (05:54→17:16)
[2017-01-04] MEDS: METHOCARBAMOL 500 MG TAB PO SCH ×3 (05:55→22:00)
[2017-01-04] MEDS: SENNOSIDES 8.6 MG TAB PO PRN (05:59)
[2017-01-04] MEDS: PCA - TOTAL MG MORPHINE DELIVERED PER SHIFT SCH ×2 (06:00→09:07)
[2017-01-04] MEDS: LACTATED RINGER'S 1000 ML INJ 1,000 ML IV SCH ×2 (06:19→16:10)
--- NOTE | 2017-01-04 06:27 | PD.ORT.PN ---
Subjective Subjective Remarks No new complaints states that he is continuing to have difficulty controlling his pain Objective Vitals Vital Signs Date Time Temp Pulse Resp B/P (MAP) Pulse Ox O2 Delivery O2 Flow Rate FiO2 01/04/17 05:07 16 01/04/17 00:20 97.2 98 16 114/56 (75) 94 01/03/17 20:49 15 01/03/17 20:10 97.9 98 20 141/76 (97) 98 01/03/17 16:21 97 21 01/03/17 16:10 95.9 92 20 122/71 (88) 98 01/03/17 15:49 16 01/03/17 11:56 16 01/03/17 11:52 Nasal Cannula 2.00 01/03/17 11:45 101 16 142/83 (102) 100 Nasal Cannula 3 01/03/17 11:30 93 16 147/82 (103) 100 Nasal Cannula 3 01/03/17 11:15 91 16 143/87 (105) 100 Nasal Cannula 3 01/03/17 11:00 97.4 96 16 155/81 (105) 100 Nasal Cannula 3 I/O 01/03/17 01/03/17 01/03/17 01/04/17 01/04/17 01/04/17 07:00 15:00 23:00 07:00 15:00 23:00 Intake Total 480 ml 2443.47 ml 720 ml Output Total 1135 ml 300 ml Balance 480 ml 1308.47 ml 420 ml Intake Oral 480 ml 250 ml 720 ml IV Total 193.47 ml Other 2000 ml Output Urine Total 600 ml 300 ml Drainage Total 35 ml Estimated Blood Loss 500 ml # Voids 3 # Bowel Movements 0 0 0 Result Diagram: 01/03/17 0500 01/01/17 0433 Imaging Last 24 hours Impressions Chest X-Ray 12/31/16 0600 Signed Impressions: Service Date/Time: Saturday, December 31, 2016 05:00 - CONCLUSION: No acute disease. Jean Arevalo MD Objective Remarks Alert awake and oriented -3. No acute distress. Pulmonary: Normal respiratory effort. Right lower extremity: Neurovascularly intact, +EHL/FHL, dressing clean, dry and intact. + PT/DP pulses. Supple compartments. Negative Homans sign. Left lower extremity: neurovascularly intact, clean dressings with mild drainage. Drain in place. Department soft Assessment & Plan Assessment and Plan 1- right tibia fx IMN POD 5 2- left acetabular fx POD1 Right lower extremity dressing changes 50% RLE for 2 wks then wbat Left lower extremity: Toe-touch weightbearing lovenox Daily dressing changes beginning POD 2 with Xeroform and removal drain Incentive spirometry. pain control Jean Baires Jr. Jan 04, 2017 06:27
[2017-01-04 06:37] LABS: AUTOMATED NEUTROPHIL # 6.4 TH/MM3 (1.8-7.7); BASOPHIL % 0.2 % (0.0-2.0); EOSINOPHIL # 0.1 TH/MM3 (0-0.4); HEMATOCRIT 25.1 % (39.0-51.0); HEMO FLAGS DIFF FINAL; LYMPH % 23.2 % (9.0-44.0); LYMPHOCYTE # 2.3 TH/MM3 (1.0-4.8); MEAN CELL VOLUME 96.4 FL (80.0-100.0); MEAN CORPUSCULAR HEMOGLOBIN 33.3 PG (27.0-34.0); MEAN CORPUSCULAR HGB CONC 34.6 % (32.0-36.0); MONO % 10.4 % (0.0-8.0); NEUT % 65.2 % (16.0-70.0); PLATELET COUNT 243 TH/MM3 (150-450); RED CELL DISTRIBUTION WIDTH 13.7 % (11.6-17.2); WHITE BLOOD COUNT 9.9 TH/MM3 (4.0-11.0)
[2017-01-04 07:03] LABS: BICARBONATE 27.7 MEQ/L (21.0-32.0); POTASSIUM 4.3 MEQ/L (3.5-5.1)
[2017-01-04] MEDS: ceFAZolin 2 GM PREMIX 50 ML IV SCH ×3 (07:28→23:32)
[2017-01-04 07:42] VITALS: BP 106/65; PULSE 104; RESP 19; TEMP 97.3; O2SAT 97
[2017-01-04] MEDS: SODIUM CHLORIDE 0.9% FLUSH 10 ML FLUSH IV FLUSH SCH ×2 (08:46→20:01)
[2017-01-04] MEDS: REMOVE OLD PATCH T-DERMAL SCH ×2 (09:00→20:01)
[2017-01-04] MEDS: DOCUSATE SODIUM 50 MG/SENNA 8.6 MG TAB PO SCH ×2 (09:02→20:00)
[2017-01-04] MEDS: GABAPENTIN 400 MG CAP PO SCH ×3 (09:02→17:16)
[2017-01-04] MEDS: INDOMETHACIN 75 MG CONTROLLED RELEASE CAP PO SCH (09:02)
[2017-01-04] MEDS: LACTULOSE SYRUP 20 GM/30 ML CUP PO SCH (09:03)
[2017-01-04] MEDS: ONDANSETRON HCL 4 MG/2 ML VIAL IV PUSH PRN (09:06)
[2017-01-04] MEDS: VANCOMYCIN INJ 1,000 MG in SODIUM CHLOR 0.9% 250 ML INJ 250 ML IV SCH ×2 (09:06→20:01)
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
[2017-01-04] MEDS: ENOXAPARIN SODIUM 30 MG/0.3 ML SYRINGE SQ SCH ×2 (11:00→23:32)
[2017-01-04] MEDS ORDERED: NALOXONE HCL 0.4 MG/ML AMP IV PUSH PRN (13:00)
[2017-01-04] MEDS: PCA - TOTAL MG DILAUDID DELIVERED PER SHIFT OTHER SCH ×2 (14:00→22:00)
[2017-01-04] MEDS ORDERED: HYDROmorphone HCL PF 1 MG/ML VIAL IV PUSH ONE (14:15)
[2017-01-04] MEDS: NICOTINE 14 MG/24 HR PATCH T-DERMAL SCH (14:40)
[2017-01-04] MEDS ORDERED: HYDROmorphone HCL PCA 6 MG/30 ML IV SCH (15:00)
[2017-01-04] MEDS: fentaNYL 25 MCG/HR PATCH T-DERMAL SCH (17:17)
[2017-01-04] MEDS: MAGNESIUM HYDROXIDE SUSP 30 ML CUP PO SCH (20:00)
[2017-01-04] MEDS: traZODone HCL 100 MG TAB PO SCH (20:00)
[2017-01-04 20:10] VITALS: BP 109/59; PULSE 106; RESP 18; TEMP 97.7; O2SAT 98
[2017-01-05] VITALS (7 sets, daily range): BP systolic 98–117; BP diastolic 54–71; PULSE 67–95; RESP 16–18; TEMP 96.5–98.5; O2SAT 95–98
[2017-01-05] MEDS: LACTATED RINGER'S 1000 ML INJ 1,000 ML IV SCH ×2 (02:19→11:24)
[2017-01-05] MEDS: METHOCARBAMOL 500 MG TAB PO SCH ×3 (05:48→22:01)
[2017-01-05] MEDS: DIAZEPAM 5 MG TAB PO PRN ×2 (05:48→18:49)
[2017-01-05] MEDS: PCA - TOTAL MG DILAUDID DELIVERED PER SHIFT OTHER SCH ×2 (06:00→13:04)
--- NOTE | 2017-01-05 06:39 | PD.ORT.PN ---
Subjective Subjective Remarks POD 2 s/p ORIF left acetabulum fx s/p IMN right tibia by Dr Mary doing well. reports mild pain but controlled. states has had some drainage from hip incision and drain site./ Objective Vitals Vital Signs Date Time Temp Pulse Resp B/P (MAP) Pulse Ox O2 Delivery O2 Flow Rate FiO2 01/05/17 06:00 5 01/05/17 04:15 97.7 91 18 98/54 (69) 96 01/05/17 00:11 97.3 94 18 108/55 (72) 96 01/04/17 22:00 15 01/04/17 20:10 97.7 106 18 109/59 (76) 98 01/04/17 15:15 18 01/04/17 09:08 Room Air 01/04/17 07:42 97.3 104 19 106/65 (79) 97 I/O 01/04/17 01/04/17 01/04/17 01/05/17 01/05/17 01/05/17 07:00 15:00 23:00 07:00 15:00 23:00 Intake Total 720 ml 950 ml 1443 ml Output Total 430 ml Balance 720 ml 520 ml 1443 ml Intake Oral 720 ml 600 ml 360 ml IV Total 350 ml 1083 ml Output Urine Total 400 ml Drainage Total 30 ml # Voids 2 1 6 # Bowel Movements 0 1 Result Diagram: 01/04/17 0545 01/04/17 0545 Imaging Last 24 hours Impressions Chest X-Ray 12/31/16 0600 Signed Impressions: Service Date/Time: Saturday, December 31, 2016 05:00 - CONCLUSION: No acute disease. Jean Arevlao MD Objective Remarks Alert awake and oriented -3. No acute distress. Pulmonary: Normal respiratory effort. Right lower extremity: Neurovascularly intact, +EHL/FHL, dressing clean, dry and intact. + PT/DP pulses. Supple compartments. Negative Homans sign. Left lower extremity: neurovascularly intact, clean dressings with mild drainage. compartments soft. Assessment & Plan Assessment and Plan 1- right tibia fx IMN POD 6 2- left acetabular fx POD2 Right lower extremity dressing changes 50% RLE for 2 wks then wbat Left lower extremity: Toe-touch weightbearing lovenox Daily dressing changes with Xeroform and removal drain Incentive spirometry. pain control CM for DC options. patient not fit for DC home. will need rehab stay if possible. f/u with [place] or PA in 2 weeks Jaswant Correa/Mortarman PA Jan 05, 2017 06:38
[2017-01-05] MEDS ORDERED: XARE10TA PO (06:40)
[2017-01-05] MEDS ORDERED: WHEEMIS3 (06:41)
[2017-01-05] MEDS ORDERED: WALKER/ADULT/FO1 MIS (06:41)
[2017-01-05] MEDS: SODIUM CHLORIDE 0.9% FLUSH 10 ML FLUSH IV FLUSH SCH ×2 (07:27→21:59)
[2017-01-05] MEDS: ceFAZolin 2 GM PREMIX 50 ML IV SCH ×3 (07:28→22:10)
[2017-01-05] MEDS: DOCUSATE SODIUM 50 MG/SENNA 8.6 MG TAB PO SCH ×2 (07:28→21:59)
[2017-01-05] MEDS: LACTULOSE SYRUP 20 GM/30 ML CUP PO SCH (07:28)
[2017-01-05] MEDS: INDOMETHACIN 75 MG CONTROLLED RELEASE CAP PO SCH (07:28)
[2017-01-05] MEDS: GABAPENTIN 400 MG CAP PO SCH ×3 (07:28→17:24)
[2017-01-05] MEDS: SENNOSIDES 8.6 MG TAB PO PRN (07:28)
[2017-01-05] MEDS: NICOTINE 14 MG/24 HR PATCH T-DERMAL SCH (07:31)
[2017-01-05] MEDS: VANCOMYCIN INJ 1,000 MG in SODIUM CHLOR 0.9% 250 ML INJ 250 ML IV SCH (08:00)
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
[2017-01-05] MEDS: ENOXAPARIN SODIUM 30 MG/0.3 ML SYRINGE SQ SCH ×2 (11:29→22:11)
[2017-01-05] MEDS: ARTIFICIAL TEARS OPTH SOLN 15 ML BTL EACH EYE PRN (11:29)
[2017-01-05] MEDS: HYDROmorphone HCL PF 1 MG/ML VIAL IV PUSH PRN ×3 (15:25→23:42)
[2017-01-05] MEDS: ACETAMINOPHEN 1000 MG/100 ML 100 ML IV SCH ×2 (15:26→20:00)
[2017-01-05] MEDS: REMOVE OLD PATCH T-DERMAL SCH (21:00)
[2017-01-05] MEDS: traZODone HCL 100 MG TAB PO SCH (21:59)
[2017-01-05] MEDS: MAGNESIUM HYDROXIDE SUSP 30 ML CUP PO SCH (21:59)
[2017-01-06] VITALS (7 sets, daily range): BP systolic 104–127; BP diastolic 56–76; PULSE 71–105; RESP 16–18; TEMP 96.6–97.6; O2SAT 97–98
[2017-01-06] MEDS: ACETAMINOPHEN 1000 MG/100 ML 100 ML IV SCH ×4 (02:47→20:58)
[2017-01-06] MEDS: ceFAZolin 2 GM PREMIX 50 ML IV SCH (06:18)
[2017-01-06] MEDS: METHOCARBAMOL 500 MG TAB PO SCH ×3 (06:19→22:02)
[2017-01-06] MEDS: HYDROmorphone HCL PF 1 MG/ML VIAL IV PUSH PRN ×3 (06:31→22:03)
--- NOTE | 2017-01-06 07:40 | PD.ORT.PN ---
Subjective Subjective Remarks POD 3 s/p ORIF left acetabulum fx s/p IMN right tibia by Dr Mary doing well. reports mild pain but controlled. states has had some drainage from hip incision and drain site./ Objective Vitals Vital Signs Date Time Temp Pulse Resp B/P (MAP) Pulse Ox O2 Delivery O2 Flow Rate FiO2 01/06/17 04:15 96.6 104 18 119/65 (83) 98 01/06/17 00:05 96.7 105 18 127/76 (93) 98 01/05/17 20:13 97 21 01/05/17 20:11 96.5 95 18 117/71 (86) 98 01/05/17 16:00 97.2 92 18 109/60 (76) 96 01/05/17 13:04 17 01/05/17 11:29 97.0 90 16 112/66 (81) 96 01/05/17 10:50 21 I/O 01/05/17 01/05/17 01/05/17 01/06/17 01/06/17 01/06/17 07:00 15:00 23:00 07:00 15:00 23:00 Intake Total 290 ml 850 ml 480 ml 240 ml Output Total 900 ml 650 ml 300 ml 700 ml Balance -610 ml 200 ml 180 ml -460 ml Intake Oral 240 ml 600 ml 480 ml 240 ml IV Total 50 ml 250 ml Output Urine Total 900 ml 650 ml 300 ml 700 ml # Voids 2 # Bowel Movements 0 2 0 0 Result Diagram: 01/04/17 0545 01/04/17 0545 Imaging Last 24 hours Impressions Chest X-Ray 12/31/16 0600 Signed Impressions: Service Date/Time: Saturday, December 31, 2016 05:00 - CONCLUSION: No acute disease. Jean Arevalo MD Objective Remarks Alert awake and oriented -3. No acute distress. Pulmonary: Normal respiratory effort. Right lower extremity: Neurovascularly intact, +EHL/FHL, dressing clean, dry and intact. + PT/DP pulses. Supple compartments. Negative Homans sign. Left lower extremity: neurovascularly intact, clean dressings with mild drainage. compartments soft. Assessment & Plan Assessment and Plan 1- right tibia fx IMN POD 7 2- left acetabular fx POD 3 Right lower extremity dressing changes 50% RLE for 2 wks then wbat Left lower extremity: Toe-touch weightbearing lovenox Daily dressing changes with Xeroform and removal drain Incentive spirometry. pain control CM for DC options. patient not fit for DC home. will need rehab stay if possible. f/u with [facility] or PA in 2 weeks Jaswant Correa/Sewing Machine Tester ORALIA Jan 06, 2017 07:39
[2017-01-06] MEDS: ARTIFICIAL TEARS OPTH SOLN 15 ML BTL EACH EYE PRN (07:47)
[2017-01-06] MEDS: LACTULOSE SYRUP 20 GM/30 ML CUP PO SCH (07:48)
[2017-01-06] MEDS: GABAPENTIN 400 MG CAP PO SCH ×3 (07:49→18:40)
[2017-01-06] MEDS: DOCUSATE SODIUM 50 MG/SENNA 8.6 MG TAB PO SCH ×2 (07:49→20:59)
[2017-01-06] MEDS: DIAZEPAM 5 MG TAB PO PRN ×2 (07:49→23:34)
[2017-01-06] MEDS: INDOMETHACIN 75 MG CONTROLLED RELEASE CAP PO SCH (07:50)
[2017-01-06] MEDS: ENOXAPARIN SODIUM 30 MG/0.3 ML SYRINGE SQ SCH ×2 (07:50→22:02)
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
[2017-01-06] MEDS: SODIUM CHLORIDE 0.9% FLUSH 10 ML FLUSH IV FLUSH SCH ×2 (09:00→20:59)
[2017-01-06] MEDS: NICOTINE 14 MG/24 HR PATCH T-DERMAL SCH (09:00)
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
[2017-01-06] MEDS: REMOVE OLD PATCH T-DERMAL SCH (20:59)
[2017-01-06] MEDS: MAGNESIUM HYDROXIDE SUSP 30 ML CUP PO SCH (20:59)
[2017-01-06] MEDS: traZODone HCL 100 MG TAB PO SCH (22:05)
[2017-01-07] VITALS: BP 103/50; PULSE 93; RESP 16; TEMP 97; O2SAT 95
[2017-01-07] MEDS: HYDROmorphone HCL PF 1 MG/ML VIAL IV PUSH PRN ×5 (02:14→20:57)
[2017-01-07 05:19] LABS: AUTOMATED NEUTROPHIL # 5.6 TH/MM3 (1.8-7.7); BASOPHIL % 0.5 % (0.0-2.0); EOSINOPHIL # 0.2 TH/MM3 (0-0.4); EOSINOPHIL % 2.4 % (0.0-4.0); HEMATOCRIT 22.8 % (39.0-51.0); LYMPH % 24.1 % (9.0-44.0); LYMPHOCYTE # 2.2 TH/MM3 (1.0-4.8); MEAN CELL VOLUME 97.5 FL (80.0-100.0); MEAN CORPUSCULAR HEMOGLOBIN 34.5 PG (27.0-34.0); MEAN CORPUSCULAR HGB CONC 35.4 % (32.0-36.0); MONO % 10.1 % (0.0-8.0); NEUT % 62.9 % (16.0-70.0); PLATELET COUNT 321 TH/MM3 (150-450); RED BLOOD COUNT 2.34 MIL/MM3 (4.50-5.90); RED CELL DISTRIBUTION WIDTH 14.3 % (11.6-17.2)
[2017-01-07] MEDS: METHOCARBAMOL 500 MG TAB PO SCH ×3 (05:22→20:58)
[2017-01-07 05:38] LABS: BICARBONATE 27.4 MEQ/L (21.0-32.0); POTASSIUM 4.2 MEQ/L (3.5-5.1)
[2017-01-07 05:39] LABS: HEMO FLAGS AUTO DIFF
[2017-01-07 05:57] LABS: SCAN/DIFF AUTO DIFF CONFIRMED
[2017-01-07 08:00] VITALS: BP 119/71; PULSE 92; RESP 18; TEMP 95.9; O2SAT 97
--- NOTE | 2017-01-07 08:41 | PD.ORT.PN ---
Subjective Subjective Remarks increase in pain RLE in ankle radiating up to knee. Objective Vitals Vital Signs Date Time Temp Pulse Resp B/P (MAP) Pulse Ox O2 Delivery O2 Flow Rate FiO2 01/07/17 08:00 95.9 92 18 119/71 (87) 97 01/07/17 00:00 97.0 93 16 103/50 (67) 95 01/06/17 20:00 97.6 105 17 110/65 (80) 97 01/06/17 16:00 97.6 90 16 125/68 (87) 98 01/06/17 12:00 97.0 71 16 104/56 (72) 98 01/06/17 09:30 18 01/06/17 08:48 98 I/O 01/06/17 01/06/17 01/06/17 01/07/17 01/07/17 01/07/17 07:00 15:00 23:00 07:00 15:00 23:00 Intake Total 240 ml 600 ml 960 ml 720 ml Output Total 700 ml 750 ml Balance -460 ml 600 ml 210 ml 720 ml Intake Oral 240 ml 600 ml 960 ml 720 ml Output Urine Total 700 ml 750 ml # Voids 4 2 # Bowel Movements 0 1 1 Result Diagram: 01/07/17 0402 01/07/17 0402 Imaging Last 24 hours Impressions Chest X-Ray 12/31/16 0600 Signed Impressions: Service Date/Time: Monday, December 31, 2016 05:00 - CONCLUSION: No acute disease. Jean Arevalo MD Objective Remarks Alert awake and oriented -3. No acute distress. Pulmonary: Normal respiratory effort. Right lower extremity: Neurovascularly intact, +EHL/FHL, dressing clean, dry and intact. + PT/DP pulses. Supple compartments. Negative Homans sign. Left lower extremity: neurovascularly intact, clean dressings with mild drainage. compartments soft. swelling foot. Assessment & Plan Assessment and Plan 1- right tibia fx IMN POD 8 2- left acetabular fx POD 4 Right lower extremity dressing changes 50% RLE for 2 wks then wbat -increase in pain. order xray. Left lower extremity: Toe-touch weightbearing lovenox Daily dressing changes with Xeroform and removal drain Incentive spirometry. pain control CM for DC options. patient not fit for DC home. will need rehab stay if possible. f/u with [facility] or [facility] in 2 weeks Mark Hughes Jan 07, 2017 08:41
[2017-01-07] MEDS: DOCUSATE SODIUM 50 MG/SENNA 8.6 MG TAB PO SCH ×2 (08:48→20:58)
[2017-01-07] MEDS: GABAPENTIN 400 MG CAP PO SCH (08:48)
[2017-01-07] MEDS: INDOMETHACIN 75 MG CONTROLLED RELEASE CAP PO SCH (08:48)
[2017-01-07] MEDS: REMOVE OLD PATCH T-DERMAL SCH ×2 (08:48→20:57)
[2017-01-07] MEDS: NICOTINE 14 MG/24 HR PATCH T-DERMAL SCH (08:48)
[2017-01-07] MEDS: SODIUM CHLORIDE 0.9% FLUSH 10 ML FLUSH IV FLUSH SCH ×2 (08:49→21:00)
[2017-01-07] MEDS: LACTULOSE SYRUP 20 GM/30 ML CUP PO SCH (08:49)
--- NOTE | 2017-01-07 09:28 | RADRPT ---
EXAM DATE/TIME: 01/07/2017 08:49 [facility] COMPARISON: TIBIA/FIBULA RIGHT (AP/LAT), December 30, 2016, 10:27. INDICATIONS : Right tib fib fracture. MEDICAL HISTORY : None. SURGICAL HISTORY : Right ORIF tib fib. ENCOUNTER: Subsequent ACUITY: 1 week PAIN SCORE: 10/10 LOCATION: Right Medial side of right tib fib FINDINGS: Two view examination of the right tibia demonstrates intramedullary uziel within the tibia fixating a p roximal facture. Postsurgical changes. CONCLUSION: Internal fixation tibia. Kenenth Thorpe MD on January 07, 2017 at 9:24 Board Certified Radiologist. This report was verified electronically.
[2017-01-07 10:36] VITALS: O2SAT 95
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
[2017-01-07] MEDS: DIAZEPAM 5 MG TAB PO PRN ×2 (11:24→23:33)
[2017-01-07 12:00] VITALS: BP 120/74; PULSE 100; RESP 20; TEMP 98.2; O2SAT 98
[2017-01-07] MEDS: ENOXAPARIN SODIUM 30 MG/0.3 ML SYRINGE SQ SCH ×2 (12:05→23:30)
[2017-01-07 16:00] VITALS: BP 150/76; PULSE 107; RESP 21; TEMP 95.6; O2SAT 94
[2017-01-07] MEDS ORDERED: REMOVE OLD DURAGESIC (FENTANYL) PATCH T-DERMAL SCH (16:00)
[2017-01-07] MEDS: fentaNYL 25 MCG/HR PATCH T-DERMAL SCH (16:07)
[2017-01-07 19:30] VITALS: BP 100/56; PULSE 89; RESP 16; TEMP 97.4; O2SAT 95
[2017-01-07] MEDS: traZODone HCL 100 MG TAB PO SCH (20:58)
[2017-01-07] MEDS: MAGNESIUM HYDROXIDE SUSP 30 ML CUP PO SCH (20:58)
[2017-01-08] VITALS: BP 123/66; PULSE 92; RESP 18; TEMP 98.2; O2SAT 96
[2017-01-08] MEDS: METHOCARBAMOL 500 MG TAB PO SCH ×3 (06:44→20:58)
[2017-01-08 08:00] VITALS: BP 120/64; PULSE 87; RESP 18; TEMP 96.5; O2SAT 96
[2017-01-08] MEDS: INDOMETHACIN 75 MG CONTROLLED RELEASE CAP PO SCH (08:31)
[2017-01-08] MEDS: HYDROmorphone HCL PF 1 MG/ML VIAL IV PUSH PRN ×3 (08:32→21:01)
[2017-01-08] MEDS: DOCUSATE SODIUM 50 MG/SENNA 8.6 MG TAB PO SCH ×2 (08:32→20:58)
[2017-01-08] MEDS: SODIUM CHLORIDE 0.9% FLUSH 10 ML FLUSH IV FLUSH SCH (08:32)
[2017-01-08] MEDS: LACTULOSE SYRUP 20 GM/30 ML CUP PO SCH (08:32)
[2017-01-08] MEDS: NICOTINE 14 MG/24 HR PATCH T-DERMAL SCH (08:33)
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
[2017-01-08 12:00] VITALS: BP 101/57; PULSE 93; RESP 18; TEMP 97.2; O2SAT 96
[2017-01-08] MEDS: ENOXAPARIN SODIUM 30 MG/0.3 ML SYRINGE SQ SCH ×2 (12:02→23:00)
[2017-01-08] MEDS: ACETAMINOPHEN 1000 MG/100 ML 100 ML IV SCH ×2 (12:02→18:24)
[2017-01-08] MEDS: DIAZEPAM 5 MG TAB PO PRN (12:07)
[2017-01-08 16:00] VITALS: BP 99/48; PULSE 82; RESP 18; TEMP 96.9; O2SAT 96
[2017-01-08 19:00] VITALS: BP 130/61; PULSE 93; RESP 17; TEMP 97.1; O2SAT 97
[2017-01-08] MEDS: MAGNESIUM HYDROXIDE SUSP 30 ML CUP PO SCH (20:58)
[2017-01-08] MEDS: traZODone HCL 100 MG TAB PO SCH (20:58)
[2017-01-08] MEDS: REMOVE OLD PATCH T-DERMAL SCH (21:00)
[2017-01-09] MEDS: DIAZEPAM 5 MG TAB PO PRN ×2 (00:23→16:22)
[2017-01-09 00:35] VITALS: BP 108/61; PULSE 93; RESP 16; TEMP 98; O2SAT 97
[2017-01-09] MEDS: ACETAMINOPHEN 1000 MG/100 ML 100 ML IV SCH ×3 (03:44→18:19)
[2017-01-09] MEDS: METHOCARBAMOL 500 MG TAB PO SCH ×4 (06:13→21:21)
[2017-01-09] MEDS: HYDROmorphone HCL PF 1 MG/ML VIAL IV PUSH PRN (06:15)
[2017-01-09] MEDS: SODIUM CHLORIDE 0.9% FLUSH 10 ML FLUSH IV FLUSH SCH ×3 (06:15→20:24)
--- NOTE | 2017-01-09 06:47 | PD.ORT.PN ---
Subjective Subjective Remarks No new complaints Objective Vitals Vital Signs Date Time Temp Pulse Resp B/P (MAP) Pulse Ox O2 Delivery O2 Flow Rate FiO2 01/09/17 04:14 18 01/09/17 01:23 18 01/09/17 00:35 98.0 93 16 108/61 (77) 97 01/08/17 21:31 18 01/08/17 19:00 97.1 93 17 130/61 (84) 97 01/08/17 16:00 96.9 82 18 99/48 (65) 96 01/08/17 12:00 97.2 93 18 101/57 (72) 96 01/08/17 08:00 96.5 87 18 120/64 (82) 96 I/O 01/08/17 01/08/17 01/08/17 01/09/17 01/09/17 01/09/17 07:00 15:00 23:00 07:00 15:00 23:00 Intake Total 480 ml 1300 ml 580 ml 350 ml Output Total 400 ml 650 ml Balance 480 ml 900 ml -70 ml 350 ml Intake Oral 480 ml 1200 ml 480 ml 350 ml IV Total 100 ml 100 ml Output Urine Total 400 ml 650 ml # Voids 2 4 3 3 # Bowel Movements 1 1 0 0 Result Diagram: 01/07/17 0402 01/07/17 0402 Imaging Last 24 hours Impressions Chest X-Ray 12/31/16 0600 Signed Impressions: Service Date/Time: Saturday, December 31, 2016 05:00 - CONCLUSION: No acute disease. Jean Arevalo MD Objective Remarks Alert awake and oriented -3. No acute distress. Pulmonary: Normal respiratory effort. Right lower extremity: Neurovascularly intact, +EHL/FHL, dressing clean, dry and intact. + PT/DP pulses. Supple compartments. Negative Homans sign. Left lower extremity: neurovascularly intact, clean dressings with mild drainage. compartments soft. swelling foot. Assessment & Plan Assessment and Plan 1- right tibia fx IMN POD 10 2- left acetabular fx POD 6 Right lower extremity dressing changes 50% RLE for 2 wks then wbat -increase in pain. order xray. Left lower extremity: Toe-touch weightbearing lovenox Daily dressing changes with Xeroform and removal drain Incentive spirometry. pain control CM for DC options. patient not fit for DC home. will need rehab stay if possible. f/u with [facility] or [facility] in 2 weeks Jean Baires Jr. Jan 09, 2017 06:47
[2017-01-09 08:00] VITALS: BP 108/54; PULSE 78; RESP 16; TEMP 98; O2SAT 95
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
[2017-01-09] MEDS: LACTULOSE SYRUP 20 GM/30 ML CUP PO SCH (09:00)
[2017-01-09] MEDS: DOCUSATE SODIUM 50 MG/SENNA 8.6 MG TAB PO SCH ×2 (09:00→20:23)
[2017-01-09] MEDS: INDOMETHACIN 75 MG CONTROLLED RELEASE CAP PO SCH (10:15)
[2017-01-09] MEDS: NICOTINE 14 MG/24 HR PATCH T-DERMAL SCH (10:15)
[2017-01-09] MEDS: HYDROmorphone HCL 2 MG TAB PO PRN ×3 (11:21→20:23)
[2017-01-09] MEDS: ENOXAPARIN SODIUM 30 MG/0.3 ML SYRINGE SQ SCH ×2 (11:22→21:21)
[2017-01-09 11:25] VITALS: BP 112/59; PULSE 84; RESP 16; TEMP 96.5; O2SAT 99
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
[2017-01-09 16:00] VITALS: BP 113/66; PULSE 74; RESP 16; TEMP 96.9; O2SAT 98
[2017-01-09 20:10] VITALS: BP 108/61; PULSE 78; RESP 16; TEMP 97.4; O2SAT 96
[2017-01-09] MEDS: MAGNESIUM HYDROXIDE SUSP 30 ML CUP PO SCH (20:22)
[2017-01-09] MEDS: traZODone HCL 100 MG TAB PO SCH (20:23)
[2017-01-09] MEDS: REMOVE OLD PATCH T-DERMAL SCH (20:41)
[2017-01-10 00:05] VITALS: BP 111/61; PULSE 81; RESP 16; TEMP 97.6; O2SAT 98
[2017-01-10] MEDS: ACETAMINOPHEN 1000 MG/100 ML 100 ML IV SCH (03:29)
[2017-01-10] MEDS: METHOCARBAMOL 500 MG TAB PO SCH ×3 (05:57→22:26)
[2017-01-10 07:27] VITALS: BP 105/59; PULSE 73; RESP 18; TEMP 97; O2SAT 97
[2017-01-10] MEDS: DIAZEPAM 5 MG TAB PO PRN ×2 (08:15→20:11)
[2017-01-10] MEDS: INDOMETHACIN 75 MG CONTROLLED RELEASE CAP PO SCH (08:15)
[2017-01-10] MEDS: HYDROmorphone HCL 2 MG TAB PO PRN (08:15)
[2017-01-10] MEDS: SODIUM CHLORIDE 0.9% FLUSH 10 ML FLUSH IV FLUSH SCH ×2 (08:16→20:14)
[2017-01-10] MEDS: LACTULOSE SYRUP 20 GM/30 ML CUP PO SCH (08:17)
[2017-01-10] MEDS: DOCUSATE SODIUM 50 MG/SENNA 8.6 MG TAB PO SCH ×2 (08:17→20:10)
[2017-01-10] MEDS: NICOTINE 14 MG/24 HR PATCH T-DERMAL SCH (08:17)
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
[2017-01-10 11:43] VITALS: BP 114/61; PULSE 77; RESP 18; TEMP 97.8; O2SAT 99
--- NOTE | 2017-01-10 12:10 | RADRPT ---
EXAM DATE/TIME: 01/10/2017 11:29 [facility] COMPARISON: No previous studies available for comparison. INDICATIONS : Right leg pain. MEDICAL HISTORY : ADHD. PTSD. Hallucinations. Mood disorders. Depression. Anxiety. Substance use. SURGICAL HISTORY : Orthopedic surgery, left arm. ENCOUNTER: Initial ACUITY: 2 day PAIN SCORE: 10/10 LOCATION: Right leg. TECHNIQUE: Venous ultrasound of the leg was performed from the inguinal ligament to the proximal calf. Real-yuriy e, color Doppler and spectral tracing, compression and augmentation techniques were used. FINDINGS: There is normal compressibility of the deep venous system from the inguinal region to the proximal ca lf. No echogenic clot is seen in the lumen of the common femoral, femoral, popliteal, and posterior tibial veins. There is a normal response of the venous system to proximal and distal augmentation an d respiration. CONCLUSION: Negative for deep venous thrombosis. Jesus Marcus MD FACR on January 10, 2017 at 12:07 Board Certified Radiologist. This report was verified electronically.
[2017-01-10] MEDS: HYDROmorphone HCL 4 MG TAB PO PRN ×3 (12:28→21:33)
[2017-01-10] MEDS: ENOXAPARIN SODIUM 30 MG/0.3 ML SYRINGE SQ SCH ×2 (12:29→22:25)
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
[2017-01-10 15:42] VITALS: BP 117/55; PULSE 82; RESP 18; TEMP 97.9; O2SAT 99
[2017-01-10 20:10] VITALS: BP 121/75; PULSE 112; RESP 16; TEMP 99.3; O2SAT 98
[2017-01-10] MEDS: MAGNESIUM HYDROXIDE SUSP 30 ML CUP PO SCH (20:10)
[2017-01-10] MEDS: traZODone HCL 100 MG TAB PO SCH (20:11)
[2017-01-10] MEDS: REMOVE OLD PATCH T-DERMAL SCH (20:14)
[2017-01-11 00:05] VITALS: BP 119/64; PULSE 96; RESP 16; TEMP 98.1; O2SAT 95
[2017-01-11] MEDS: HYDROmorphone HCL 4 MG TAB PO PRN ×6 (01:26→22:52)
[2017-01-11] MEDS: METHOCARBAMOL 500 MG TAB PO SCH ×3 (05:46→21:42)
[2017-01-11 07:33] VITALS: BP 105/62; PULSE 78; RESP 17; TEMP 96.4; O2SAT 100
[2017-01-11] MEDS: NICOTINE 14 MG/24 HR PATCH T-DERMAL SCH (10:00)
[2017-01-11] MEDS: INDOMETHACIN 75 MG CONTROLLED RELEASE CAP PO SCH (10:00)
[2017-01-11] MEDS: DOCUSATE SODIUM 50 MG/SENNA 8.6 MG TAB PO SCH ×2 (10:01→21:45)
[2017-01-11] MEDS: LACTULOSE SYRUP 20 GM/30 ML CUP PO SCH (10:01)
[2017-01-11] MEDS: ENOXAPARIN SODIUM 30 MG/0.3 ML SYRINGE SQ SCH ×2 (10:01→22:52)
[2017-01-11] MEDS: DIAZEPAM 5 MG TAB PO PRN ×2 (10:02→21:43)
[2017-01-11] MEDS: SODIUM CHLORIDE 0.9% FLUSH 10 ML FLUSH IV FLUSH SCH ×2 (10:26→21:45)
[2017-01-11 11:34] VITALS: BP 109/60; PULSE 70; RESP 17; TEMP 96.7; O2SAT 99
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
[2017-01-11 16:00] VITALS: BP 112/64; PULSE 68; RESP 17; TEMP 96.8; O2SAT 99
[2017-01-11 20:40] VITALS: BP 123/61; PULSE 77; RESP 16; TEMP 98.7; O2SAT 97
[2017-01-11] MEDS: MAGNESIUM HYDROXIDE SUSP 30 ML CUP PO SCH (21:00)
[2017-01-11] MEDS: REMOVE OLD PATCH T-DERMAL SCH (21:00)
[2017-01-11] MEDS: traZODone HCL 100 MG TAB PO SCH (21:43)
[2017-01-12 00:05] VITALS: BP 120/57; PULSE 75; RESP 17; TEMP 97.2; O2SAT 98
[2017-01-12] MEDS: HYDROmorphone HCL 4 MG TAB PO PRN ×5 (02:45→21:15)
[2017-01-12] MEDS: METHOCARBAMOL 500 MG TAB PO SCH ×3 (06:30→21:15)
--- NOTE | 2017-01-12 06:45 | PD.ORT.PN ---
Subjective Subjective Remarks POD 9 s/p ORIF left acetabulum fx s/p IMN right tibia by Dr Mray doing well. reports mild pain but controlled. states out of bed with wheelchair. reports that someone came in his room and told him he would be putting weight on the left leg soon Objective Vitals Vital Signs Date Time Temp Pulse Resp B/P (MAP) Pulse Ox O2 Delivery O2 Flow Rate FiO2 01/12/17 00:05 97.2 75 17 120/57 (78) 98 01/11/17 20:40 98.7 77 16 123/61 (81) 97 01/11/17 16:00 96.8 68 17 112/64 (80) 99 01/11/17 11:34 96.7 70 17 109/60 (76) 99 01/11/17 07:33 96.4 78 17 105/62 (76) 100 I/O 01/11/17 01/11/17 01/11/17 01/12/17 01/12/17 01/12/17 07:00 15:00 23:00 07:00 15:00 23:00 Intake Total 360 ml 900 ml 480 ml 480 ml Output Total 800 ml Balance 360 ml 100 ml 480 ml 480 ml Intake Oral 360 ml 900 ml 480 ml 480 ml Output Urine Total 800 ml # Voids 2 2 2 # Bowel Movements 0 1 0 Imaging Last 24 hours Impressions Chest X-Ray 12/31/16 0600 Signed Impressions: Service Date/Time: Monday, December 31, 2016 05:00 - CONCLUSION: No acute disease. Jean Arevalo MD Objective Remarks Alert awake and oriented -3. No acute distress. Pulmonary: Normal respiratory effort. Right lower extremity: Neurovascularly intact, +EHL/FHL, dressing clean, dry and intact. + PT/DP pulses. Supple compartments. Negative Homans sign. Left lower extremity: neurovascularly intact, clean dressings with mild drainage. compartments soft. swelling foot. Assessment & Plan Assessment and Plan 1- right tibia fx IMN POD 13 2- left acetabular fx POD 9 Right lower extremity dressing changes 50% RLE for 2 wks then wbat - plan for progressions of weight bearing status on right leg this week Left lower extremity: Toe-touch weightbearing lovenox Daily dressing changes with Xeroform and removal drain Incentive spirometry. pain control CM for DC options. patient not fit for DC home. will need rehab stay if possible. danger to self if discharged in this condition. patient will be TTWB on left leg for 3 months. not allowed to put weight on left leg or walk with left leg. just rest on ground while ambulating. no quad sets, leg lifts f/u with [place] or PA in 2 weeks Jaswant Correa PA/Cost Accounting Clerk PA Jan 12, 2017 06:45
[2017-01-12 08:00] VITALS: BP 113/66; PULSE 73; RESP 19; TEMP 98.7; O2SAT 95
[2017-01-12] MEDS ORDERED: ACETAMINOPHEN/HYDROcodone 325 MG/10 MG TAB PO PRN (08:00)
[2017-01-12] MEDS ORDERED: HYDROmorphone HCL PF 2 MG/ML VIAL IV PUSH PRN (08:00)
[2017-01-12] MEDS ORDERED: ACETAMINOPHEN/HYDROcodone 325 MG/7.5 MG TAB PO PRN (08:00)
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
[2017-01-12 11:41] VITALS: BP 112/61; PULSE 77; RESP 18; TEMP 97.8; O2SAT 99
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
[2017-01-12] MEDS: ENOXAPARIN SODIUM 30 MG/0.3 ML SYRINGE SQ SCH ×2 (12:00→12:10)
[2017-01-12] MEDS: DOCUSATE SODIUM 50 MG/SENNA 8.6 MG TAB PO SCH ×2 (12:07→21:00)
[2017-01-12] MEDS: DIAZEPAM 5 MG TAB PO PRN (12:07)
[2017-01-12] MEDS: INDOMETHACIN 75 MG CONTROLLED RELEASE CAP PO SCH (12:07)
[2017-01-12] MEDS: NICOTINE 14 MG/24 HR PATCH T-DERMAL SCH (12:09)
[2017-01-12] MEDS: SODIUM CHLORIDE 0.9% FLUSH 10 ML FLUSH IV FLUSH SCH ×2 (12:10→21:19)
[2017-01-12] MEDS: LACTULOSE SYRUP 20 GM/30 ML CUP PO SCH (12:10)
[2017-01-12 16:00] VITALS: BP 129/59; PULSE 63; RESP 18; TEMP 97.2; O2SAT 98
[2017-01-12 19:25] VITALS: BP 104/59; PULSE 88; RESP 18; TEMP 96.8; O2SAT 97
[2017-01-12] MEDS: REMOVE OLD PATCH T-DERMAL SCH (21:00)
[2017-01-12] MEDS: MAGNESIUM HYDROXIDE SUSP 30 ML CUP PO SCH (21:00)
[2017-01-12] MEDS: traZODone HCL 100 MG TAB PO SCH (21:15)
[2017-01-13 00:43] VITALS: BP 106/55; PULSE 76; RESP 18; TEMP 96.7; O2SAT 96
[2017-01-13] MEDS: DIAZEPAM 5 MG TAB PO PRN ×2 (00:50→12:52)
[2017-01-13] MEDS: HYDROmorphone HCL 4 MG TAB PO PRN ×5 (01:25→19:27)
[2017-01-13] MEDS: METHOCARBAMOL 500 MG TAB PO SCH ×3 (05:31→22:28)
[2017-01-13 06:23] LABS: AUTOMATED NEUTROPHIL # 5.5 TH/MM3 (1.8-7.7); BASOPHIL # 0.1 TH/MM3 (0-0.2); BASOPHIL % 0.9 % (0.0-2.0); EOSINOPHIL # 0.2 TH/MM3 (0-0.4); EOSINOPHIL % 2.1 % (0.0-4.0); HEMATOCRIT 29.6 % (39.0-51.0); LYMPH % 27.3 % (9.0-44.0); LYMPHOCYTE # 2.5 TH/MM3 (1.0-4.8); MEAN CELL VOLUME 96.4 FL (80.0-100.0); MEAN CORPUSCULAR HEMOGLOBIN 33.7 PG (27.0-34.0); MEAN CORPUSCULAR HGB CONC 34.9 % (32.0-36.0); MONO % 8.8 % (0.0-8.0); NEUT % 60.9 % (16.0-70.0); PLATELET COUNT 507 TH/MM3 (150-450); RED BLOOD COUNT 3.07 MIL/MM3 (4.50-5.90); RED CELL DISTRIBUTION WIDTH 14.6 % (11.6-17.2); WHITE BLOOD COUNT 9.1 TH/MM3 (4.0-11.0)
[2017-01-13 06:24] LABS: HEMO FLAGS AUTO DIFF
[2017-01-13 06:52] LABS: BICARBONATE 24.8 MEQ/L (21.0-32.0); POTASSIUM 4.2 MEQ/L (3.5-5.1)
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
[2017-01-13 08:00] VITALS: BP 148/66; PULSE 79; RESP 19; TEMP 97.6; O2SAT 98
[2017-01-13 08:04] LABS: BANDS 1 % (0-6); BASOPHILS 2 % (0-2); EOSINOPHILS 5 % (0-4); METAMYELOCYTES 1 % (0-1); MYELOCYTES 4 % (0-0); NEUTROPHIL # MANUAL DIFF 5.2 TH/MM3 (1.8-7.7); PLATELET ESTIMATE SMEAR HIGH (NORMAL); PLATELET MORPHOLOGY NORMAL (NORMAL); POLYS (SEG NEUTROPHILS) 51 % (16-70); SCAN/DIFF FINAL DIFF MANUAL; WBC DIFF SAMPLE 100
[2017-01-13] MEDS: INDOMETHACIN 75 MG CONTROLLED RELEASE CAP PO SCH (08:49)
[2017-01-13] MEDS: SODIUM CHLORIDE 0.9% FLUSH 10 ML FLUSH IV FLUSH SCH ×2 (08:50→20:39)
[2017-01-13] MEDS: LACTULOSE SYRUP 20 GM/30 ML CUP PO SCH (08:50)
[2017-01-13] MEDS: NICOTINE 14 MG/24 HR PATCH T-DERMAL SCH (08:50)
[2017-01-13] MEDS: DOCUSATE SODIUM 50 MG/SENNA 8.6 MG TAB PO SCH ×2 (08:50→20:38)
[2017-01-13] MEDS: ENOXAPARIN SODIUM 30 MG/0.3 ML SYRINGE SQ SCH ×2 (11:00→22:28)
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
--- NOTE | 2017-01-13 11:59 | RADRPT ---
EXAM DATE/TIME: 01/13/2017 10:47 [facility] COMPARISON: TIBIA/FIBULA RIGHT (AP/LAT), January 07, 2017, 8:49. INDICATIONS : Post reduction MEDICAL HISTORY : None. SURGICAL HISTORY : orif right tibia surgery ENCOUNTER: Initial ACUITY: 2 weeks PAIN SCORE: 0/10 LOCATION: Right tibia/fib FINDINGS: AP and lateral views of the right leg demonstrate stable appearance to the comminuted fracture in the proximal tibial metadiaphysis. Skin william remain present. There is antegrade intramedullary uziel wi th 3 proximal and 2 distal interlocking screws. Subcutaneous edema is present. CONCLUSION: Stable examination of the right leg following recent tibia ORIF. The comminuted fracture has not sign ificantly changed. Neal Lucio MD on January 13, 2017 at 11:55 Board Certified Radiologist. This report was verified electronically.
[2017-01-13 12:00] VITALS: BP 126/63; PULSE 74; RESP 19; TEMP 97.8; O2SAT 95
[2017-01-13 16:00] VITALS: BP 105/63; PULSE 70; RESP 19; TEMP 97.2; O2SAT 96
[2017-01-13 20:37] VITALS: BP 114/66; PULSE 89; RESP 19; TEMP 96.8; O2SAT 98
[2017-01-13] MEDS: MAGNESIUM HYDROXIDE SUSP 30 ML CUP PO SCH (20:38)
[2017-01-13] MEDS: traZODone HCL 100 MG TAB PO SCH (20:41)
[2017-01-13] MEDS: REMOVE OLD PATCH T-DERMAL SCH (21:00)
[2017-01-13] MEDS: ACETAMINOPHEN 325 MG TAB PO PRN (22:28)
[2017-01-14] MEDS: HYDROmorphone HCL 4 MG TAB PO PRN ×6 (00:37→22:14)
[2017-01-14 00:41] VITALS: BP 105/57; PULSE 84; RESP 18; TEMP 96.7; O2SAT 98
[2017-01-14] MEDS: DIAZEPAM 5 MG TAB PO PRN ×2 (01:41→13:34)
[2017-01-14] MEDS: METHOCARBAMOL 500 MG TAB PO SCH ×3 (05:07→22:12)
[2017-01-14] MEDS: INDOMETHACIN 75 MG CONTROLLED RELEASE CAP PO SCH (08:39)
[2017-01-14] MEDS: LACTULOSE SYRUP 20 GM/30 ML CUP PO SCH (08:40)
[2017-01-14] MEDS: DOCUSATE SODIUM 50 MG/SENNA 8.6 MG TAB PO SCH ×2 (08:40→22:11)
[2017-01-14] MEDS: NICOTINE 14 MG/24 HR PATCH T-DERMAL SCH (08:41)
[2017-01-14] MEDS: SODIUM CHLORIDE 0.9% FLUSH 10 ML FLUSH IV FLUSH SCH ×2 (08:41→22:11)
[2017-01-14] MEDS: ENOXAPARIN SODIUM 30 MG/0.3 ML SYRINGE SQ SCH ×2 (11:58→22:12)
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
[2017-01-14 16:00] VITALS: BP 98/51; PULSE 67; RESP 17; TEMP 96.9; O2SAT 97
[2017-01-14 20:00] VITALS: BP 125/60; PULSE 77; RESP 18; TEMP 98.1; O2SAT 97
[2017-01-14] MEDS: MAGNESIUM HYDROXIDE SUSP 30 ML CUP PO SCH (21:00)
[2017-01-14] MEDS: REMOVE OLD PATCH T-DERMAL SCH (21:00)
[2017-01-14] MEDS: traZODone HCL 100 MG TAB PO SCH (22:10)
[2017-01-15] VITALS: BP 107/57; PULSE 72; RESP 18; TEMP 98.5; O2SAT 97
[2017-01-15] MEDS: DIAZEPAM 5 MG TAB PO PRN ×2 (02:08→14:45)
[2017-01-15] MEDS: HYDROmorphone HCL 4 MG TAB PO PRN ×4 (02:11→16:46)
[2017-01-15] MEDS: METHOCARBAMOL 500 MG TAB PO SCH ×3 (06:08→23:22)
[2017-01-15 08:00] VITALS: BP 102/59; PULSE 75; RESP 18; TEMP 97.2; O2SAT 100
[2017-01-15] MEDS: ACETAMINOPHEN 325 MG TAB PO PRN (08:56)
[2017-01-15] MEDS: NICOTINE 14 MG/24 HR PATCH T-DERMAL SCH (08:57)
[2017-01-15] MEDS: DOCUSATE SODIUM 50 MG/SENNA 8.6 MG TAB PO SCH ×2 (08:57→23:21)
[2017-01-15] MEDS: LACTULOSE SYRUP 20 GM/30 ML CUP PO SCH (08:57)
[2017-01-15] MEDS: SODIUM CHLORIDE 0.9% FLUSH 10 ML FLUSH IV FLUSH SCH ×2 (08:57→21:00)
[2017-01-15] MEDS: INDOMETHACIN 75 MG CONTROLLED RELEASE CAP PO SCH (08:57)
[2017-01-15] MEDS: ENOXAPARIN SODIUM 30 MG/0.3 ML SYRINGE SQ SCH ×2 (11:33→23:21)
[2017-01-15 12:00] VITALS: BP 109/56; PULSE 68; RESP 18; TEMP 97.8; O2SAT 97
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
[2017-01-15 16:00] VITALS: BP 97/55; PULSE 68; RESP 18; TEMP 97.1; O2SAT 95
[2017-01-15 20:49] VITALS: BP 102/55; PULSE 75; RESP 18; TEMP 97; O2SAT 96
[2017-01-15] MEDS: MAGNESIUM HYDROXIDE SUSP 30 ML CUP PO SCH (21:00)
[2017-01-15] MEDS: REMOVE OLD PATCH T-DERMAL SCH (21:00)
[2017-01-15 23:13] VITALS: BP 109/59; PULSE 63; RESP 18; TEMP 96.7; O2SAT 98
[2017-01-15] MEDS: traZODone HCL 100 MG TAB PO SCH (23:21)
[2017-01-16] MEDS: HYDROmorphone HCL 4 MG TAB PO PRN ×5 (02:42→17:23)
[2017-01-16] MEDS: DIAZEPAM 5 MG TAB PO PRN ×2 (02:45→14:53)
[2017-01-16 03:13] VITALS: BP 92/53; PULSE 64; RESP 18; TEMP 96.7; O2SAT 98
[2017-01-16] MEDS: METHOCARBAMOL 500 MG TAB PO SCH ×5 (06:00→20:10)
[2017-01-16 08:00] VITALS: BP 106/60; PULSE 88; RESP 18; TEMP 95.4; O2SAT 97
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
[2017-01-16] MEDS: NICOTINE 14 MG/24 HR PATCH T-DERMAL SCH (09:00)
[2017-01-16] MEDS: LACTULOSE SYRUP 20 GM/30 ML CUP PO SCH (09:00)
[2017-01-16] MEDS: SODIUM CHLORIDE 0.9% FLUSH 10 ML FLUSH IV FLUSH SCH ×2 (09:00→20:10)
[2017-01-16] MEDS: INDOMETHACIN 75 MG CONTROLLED RELEASE CAP PO SCH (09:22)
[2017-01-16] MEDS: DOCUSATE SODIUM 50 MG/SENNA 8.6 MG TAB PO SCH ×2 (09:24→20:09)
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
[2017-01-16] MEDS: ENOXAPARIN SODIUM 30 MG/0.3 ML SYRINGE SQ SCH (11:35)
[2017-01-16 12:00] VITALS: BP 109/61; PULSE 73; RESP 18; TEMP 97.5; O2SAT 99
[2017-01-16 16:00] VITALS: BP 135/67; PULSE 73; RESP 18; TEMP 97.2; O2SAT 98
[2017-01-16 19:12] VITALS: BP 141/57; PULSE 76; RESP 18; TEMP 97.5; O2SAT 98
[2017-01-16] MEDS: traZODone HCL 100 MG TAB PO SCH (20:09)
[2017-01-16] MEDS: REMOVE OLD PATCH T-DERMAL SCH (20:10)
[2017-01-16] MEDS: MAGNESIUM HYDROXIDE SUSP 30 ML CUP PO SCH (20:10)
[2017-01-16 23:17] VITALS: BP 111/56; PULSE 60; RESP 18; TEMP 96.7; O2SAT 98
[2017-01-17] MEDS: DIAZEPAM 5 MG TAB PO PRN ×3 (00:25→20:04)
[2017-01-17] MEDS: ENOXAPARIN SODIUM 30 MG/0.3 ML SYRINGE SQ SCH ×3 (00:25→21:52)
[2017-01-17] MEDS: HYDROmorphone HCL 4 MG TAB PO PRN ×6 (01:50→23:30)
[2017-01-17] MEDS: METHOCARBAMOL 500 MG TAB PO SCH ×3 (04:34→20:04)
[2017-01-17] MEDS: ACETAMINOPHEN 325 MG TAB PO PRN (04:35)
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
[2017-01-17 08:00] VITALS: BP 117/70; PULSE 64; RESP 18; TEMP 97.1; O2SAT 98
[2017-01-17] MEDS: LACTULOSE SYRUP 20 GM/30 ML CUP PO SCH (09:00)
[2017-01-17] MEDS: NICOTINE 14 MG/24 HR PATCH T-DERMAL SCH (09:00)
[2017-01-17] MEDS: SODIUM CHLORIDE 0.9% FLUSH 10 ML FLUSH IV FLUSH SCH ×2 (09:00→20:05)
[2017-01-17] MEDS: DOCUSATE SODIUM 50 MG/SENNA 8.6 MG TAB PO SCH ×2 (09:40→20:05)
[2017-01-17] MEDS: INDOMETHACIN 75 MG CONTROLLED RELEASE CAP PO SCH (09:40)
--- NOTE | 2017-01-17 09:40 | PD.ORT.PN ---
Subjective Subjective Remarks Doing well. No issues. in wheelchair out and about Objective Vitals Vital Signs Date Time Temp Pulse Resp B/P (MAP) Pulse Ox O2 Delivery O2 Flow Rate FiO2 01/17/17 08:00 97.1 64 18 117/70 (86) 98 01/17/17 07:30 Room Air 01/16/17 23:17 96.7 60 18 111/56 (74) 98 01/16/17 19:12 97.5 76 18 141/57 (85) 98 01/16/17 16:00 97.2 73 18 135/67 (89) 98 01/16/17 12:00 97.5 73 18 109/61 (77) 99 I/O 01/16/17 01/16/17 01/16/17 01/17/17 01/17/17 01/17/17 07:00 15:00 23:00 07:00 15:00 23:00 Intake Total 480 ml 600 ml 720 ml 480 ml Balance 480 ml 600 ml 720 ml 480 ml Intake Oral 480 ml 600 ml 720 ml 480 ml # Voids 2 3 4 2 # Bowel Movements 0 0 1 Result Diagram: 01/13/1752401/13/17 05 Imaging Last 24 hours Impressions Chest X-Ray 12/31/16 0600 Signed Impressions: Service Date/Time: Saturday, December 31, 2016 05:00 - CONCLUSION: No acute disease. Jean Arevalo MD Objective Remarks Alert awake and oriented -3. No acute distress. Pulmonary: Normal respiratory effort. Right lower extremity: Neurovascularly intact, CKS in place, +EHL/FHL, dressing clean, dry and intact. + PT/DP pulses. Supple compartments. Negative Homans sign. Left lower extremity: neurovascularly intact, CKS, clean dressings with mild drainage. compartments soft. swelling foot. Assessment & Plan Assessment and Plan Right tibia fx IMN DOS 12/30/2016 doing well. dc CKS adv to [facility]BA RLE lovenox Continue all Dr Henderson orders and WB restrictions regarding LLE f/u 2 wks outpatient DATE OF VISIT 01/16/2017 Pablito Mary Jr., MD Jan 17, 2017 09:40
[2017-01-17 12:00] VITALS: BP 118/65; PULSE 69; RESP 18; TEMP 98.3; O2SAT 97
[2017-01-17 19:38] VITALS: BP 112/89; PULSE 58; RESP 18; TEMP 96.6; O2SAT 99
[2017-01-17] MEDS: traZODone HCL 100 MG TAB PO SCH (20:04)
[2017-01-17] MEDS: MAGNESIUM HYDROXIDE SUSP 30 ML CUP PO SCH (20:05)
[2017-01-17] MEDS: REMOVE OLD PATCH T-DERMAL SCH (20:05)
[2017-01-17 23:27] VITALS: BP 112/68; PULSE 63; RESP 18; TEMP 97.9; O2SAT 98
[2017-01-18] MEDS: METHOCARBAMOL 500 MG TAB PO SCH ×3 (05:47→22:49)
[2017-01-18] MEDS: HYDROmorphone HCL 4 MG TAB PO PRN ×5 (05:47→22:52)
[2017-01-18 08:00] VITALS: BP 95/50; PULSE 74; RESP 18; TEMP 97.6; O2SAT 96
[2017-01-18] MEDS: SODIUM CHLORIDE 0.9% FLUSH 10 ML FLUSH IV FLUSH SCH ×2 (08:07→21:00)
[2017-01-18] MEDS: NICOTINE 14 MG/24 HR PATCH T-DERMAL SCH (08:08)
[2017-01-18] MEDS: LACTULOSE SYRUP 20 GM/30 ML CUP PO SCH (08:08)
[2017-01-18] MEDS: DIAZEPAM 5 MG TAB PO PRN ×3 (08:09→23:24)
[2017-01-18] MEDS: DOCUSATE SODIUM 50 MG/SENNA 8.6 MG TAB PO SCH ×2 (08:09→22:49)
[2017-01-18] MEDS: INDOMETHACIN 75 MG CONTROLLED RELEASE CAP PO SCH (08:09)
[2017-01-18] MEDS: ENOXAPARIN SODIUM 30 MG/0.3 ML SYRINGE SQ SCH ×2 (09:59→22:49)
[2017-01-18 12:00] VITALS: BP 113/68; PULSE 73; RESP 18; TEMP 98.2; O2SAT 97
[2017-01-18] MEDS: ACETAMINOPHEN 325 MG TAB PO PRN (12:39)
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
[2017-01-18 16:00] VITALS: BP 112/68; PULSE 69; RESP 18; TEMP 96.2; O2SAT 99
[2017-01-18 20:00] VITALS: BP 120/62; PULSE 63; RESP 16; TEMP 97.4; O2SAT 97
[2017-01-18] MEDS: MAGNESIUM HYDROXIDE SUSP 30 ML CUP PO SCH (21:00)
[2017-01-18] MEDS: REMOVE OLD PATCH T-DERMAL SCH (21:00)
[2017-01-18] MEDS: traZODone HCL 100 MG TAB PO SCH (22:48)
[2017-01-19 00:06] VITALS: BP 110/58; PULSE 68; RESP 16; TEMP 97.1; O2SAT 98
[2017-01-19] MEDS: HYDROmorphone HCL 4 MG TAB PO PRN ×5 (03:17→21:18)
[2017-01-19] MEDS: METHOCARBAMOL 500 MG TAB PO SCH ×3 (06:01→21:13)
--- NOTE | 2017-01-19 06:50 | PD.ORT.PN ---
Subjective Subjective Remarks No new complaints Objective Vitals Vital Signs Date Time Temp Pulse Resp B/P (MAP) Pulse Ox O2 Delivery O2 Flow Rate FiO2 01/19/17 00:06 97.1 68 16 110/58 (75) 98 01/18/17 20:00 97.4 63 16 120/62 (81) 97 01/18/17 16:00 96.2 69 18 112/68 (83) 99 01/18/17 12:00 98.2 73 18 113/68 (83) 97 01/18/17 08:10 Room Air 01/18/17 08:00 97.6 74 18 95/50 (65) 96 I/O 01/18/17 01/18/17 01/18/17 01/19/17 01/19/17 01/19/17 07:00 15:00 23:00 07:00 15:00 23:00 Intake Total 480 ml 600 ml 480 ml Output Total 675 ml 800 ml Balance -195 ml 600 ml -320 ml Intake Oral 480 ml 600 ml 480 ml Output Urine Total 675 ml 800 ml # Voids 1 3 # Bowel Movements 0 2 0 Imaging Last 24 hours Impressions Chest X-Ray 12/31/16 0600 Signed Impressions: Service Date/Time: Monday, December 31, 2016 05:00 - CONCLUSION: No acute disease. Jean Arevalo MD Objective Remarks Alert awake and oriented -3. No acute distress. Pulmonary: Normal respiratory effort. Right lower extremity: Neurovascularly intact, CKS in place, +EHL/FHL, dressing clean, dry and intact. + PT/DP pulses. Supple compartments. Negative Homans sign. Left lower extremity: neurovascularly intact, CKS, incision healing well. compartments soft. swelling foot. Assessment & Plan Assessment and Plan Right tibia fx IMN DOS 12/30/2016 -Micheleard WBAT RLE Left acetabulum fracture ORIF left in 01/03/2017 -Danna Toe-touch weightbearing left lower extremity, no active leglifts or quad sets , knee immobilizer when in bed with posterior hip precautions lovenox Incentive spirometry Discharge plan. Patient does not have home Jean Baires Jr. Jan 19, 2017 06:50
[2017-01-19] MEDS: DIAZEPAM 5 MG TAB PO PRN ×2 (07:43→16:33)
[2017-01-19 08:00] VITALS: BP 108/58; PULSE 60; RESP 18; TEMP 96.9; O2SAT 98
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
[2017-01-19] MEDS: LACTULOSE SYRUP 20 GM/30 ML CUP PO SCH (09:00)
[2017-01-19] MEDS: SODIUM CHLORIDE 0.9% FLUSH 10 ML FLUSH IV FLUSH SCH ×2 (09:00→21:00)
[2017-01-19] MEDS: NICOTINE 14 MG/24 HR PATCH T-DERMAL SCH (09:00)
[2017-01-19] MEDS: INDOMETHACIN 75 MG CONTROLLED RELEASE CAP PO SCH (10:35)
[2017-01-19] MEDS: DOCUSATE SODIUM 50 MG/SENNA 8.6 MG TAB PO SCH ×2 (10:36→21:13)
[2017-01-19] MEDS: ENOXAPARIN SODIUM 30 MG/0.3 ML SYRINGE SQ SCH ×2 (10:53→23:34)
[2017-01-19 12:00] VITALS: BP 128/71; PULSE 77; RESP 18; TEMP 97.5; O2SAT 99
[2017-01-19] MEDS ORDERED: ROBA750T PO (13:12)
[2017-01-19] MEDS ORDERED: PERC10TA27 PO (13:12)
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
[2017-01-19] MEDS ORDERED: DIAZ5 PO (14:37)
[2017-01-19 16:00] VITALS: BP 115/64; PULSE 74; RESP 18; TEMP 97.6; O2SAT 98
[2017-01-19 20:00] VITALS: BP 128/69; PULSE 79; RESP 18; TEMP 97.1; O2SAT 99
[2017-01-19] MEDS: REMOVE OLD PATCH T-DERMAL SCH (21:00)
[2017-01-19] MEDS: MAGNESIUM HYDROXIDE SUSP 30 ML CUP PO SCH (21:13)
[2017-01-19] MEDS: traZODone HCL 100 MG TAB PO SCH (21:13)
[2017-01-20] MEDS: HYDROmorphone HCL 4 MG TAB PO PRN ×2 (04:55→09:56)
[2017-01-20] MEDS: DIAZEPAM 5 MG TAB PO PRN (04:57)
[2017-01-20] MEDS: METHOCARBAMOL 500 MG TAB PO SCH (05:48)
[2017-01-20 08:00] VITALS: BP 107/68; PULSE 70; RESP 18; TEMP 96.8; O2SAT 99
[2017-01-20] MEDS: DOCUSATE SODIUM 50 MG/SENNA 8.6 MG TAB PO SCH (09:00)
[2017-01-20] MEDS: LACTULOSE SYRUP 20 GM/30 ML CUP PO SCH (09:00)
[2017-01-20] MEDS: NICOTINE 14 MG/24 HR PATCH T-DERMAL SCH (09:00)
[2017-01-20] MEDS: INDOMETHACIN 75 MG CONTROLLED RELEASE CAP PO SCH (09:56)
[2017-01-20] MEDS ORDERED: PERC5TAB12 PO (11:11)
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
== END 2017-01-20 12:53 | disposition home or self-care (01) | DRG 957 ==
LOC: NEPI 18:28 → NEDA 18:59 → N03B 21:55 → N06A 12-30 16:00
PROVIDERS: ADMIT Surgery Trauma Surgery; ATTEND Surgery Trauma Surgery
PROC: 0QSG06Z Reposition Right Tibia with Intramedullary Internal Fixation Device, Open Approach (ICD-10-PCS; principal; 2016-12-30 08:41)
PROC: 0QS504Z Reposition Left Acetabulum with Internal Fixation Device, Open Approach (ICD-10-PCS; 2017-01-03)
DX: S82.101A Unspecified fracture of upper end of right tibia, initial encounter for closed fracture (principal); S32.452A Displaced transverse fracture of left acetabulum, initial encounter for closed fracture; K66.1 Hemoperitoneum; S27.321A Contusion of lung, unilateral, initial encounter; S82.401A Unspecified fracture of shaft of right fibula, initial encounter for closed fracture; S22.41XA Multiple fractures of ribs, right side, initial encounter for closed fracture; F43.10 Post-traumatic stress disorder, unspecified; F60.2 Antisocial personality disorder; F90.9 Attention-deficit hyperactivity disorder, unspecified type; F32.9 Major depressive disorder, single episode, unspecified; F19.10 Other psychoactive substance abuse, uncomplicated; F10.10 Alcohol abuse, uncomplicated; Z91.19 Patient's noncompliance with other medical treatment and regimen; Z59.0 Homelessness; K59.00 Constipation, unspecified; F17.210 Nicotine dependence, cigarettes, uncomplicated; V23.4XXA Motorcycle driver injured in collision with car, pick-up truck or van in traffic accident, initial encounter; Y92.488 Other paved roadways as the place of occurrence of the external cause; Y93.89 Activity, other specified; M54.9 Dorsalgia, unspecified; M25.571 Pain in right ankle and joints of right foot
CPT/HCPCS: 70450; 71010; 71260; 72125; 72128; 72131; 72170; 73502; 73590; 73700; 74177; 76000; 76937; 77290; 77307; 77334; 77336; 77387; 77412; 77431; 80048; 80053; 80307; 82435; 82565; 82947; 84132; 84295; 84520; 85007; 85025; 85027; 85610; 85730; 86850; 86900; 86901; 86920; 87641; 93971; 94150; 99221; J1170; C1713; C9113; J0131; J0690; J1100; J1580; J1644; J1650; J1885; J2175; J2250; J2270; J2405; J2710; J3010; J3370; J3411; J7030; J7040; J7050; J7120; L1830; Q9967

== ENCOUNTER 2017-01-29 22:08 | Emergency (ER) | payer OTHER, MEDICAID ==
[~2017-01-29] VITALS: Ht 177.8 cm; Wt 82.0 kg
[~2017-01-29 22:08] MED LIST: COMMODE 3-IN-11 MIS; DIAZ5 PO; MAGN30S PO; PERC5TAB12 PO; PERI PO; ROBA750T PO; TUB TRANSFER BO1 MIS; WALKER/ADULT/FO1 MIS; WHEEMIS3; XARE10TA PO
[2017-01-29 22:21] VITALS: BP 152/84; PULSE 100; RESP 18; TEMP 98.2; O2SAT 98
[2017-01-29] MEDS ORDERED: NAPR500T2 PO (22:39)
[2017-01-29] MEDS ORDERED: TYLETAB34 PO (22:39)
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
[2017-01-30] MEDS ORDERED: KETOROLAC TROMETHAMINE 60 MG/2 ML (IM) VIAL IM ONE (00:15)
[2017-01-30 01:00] VITALS: RESP 18
== END 2017-01-30 01:20 | disposition home or self-care (01) ==
LOC: NEPD 22:08
DX: G89.18 Other acute postprocedural pain (principal); M25.552 Pain in left hip; F17.200 Nicotine dependence, unspecified, uncomplicated
CPT/HCPCS: 96372; 99284; J1885